=== PATIENT | male | born 1960 | race Caucasian/White ===

== ENCOUNTER 2020-08-16 08:46 | Emergency (ER) | payer OTHER ==
--- OUTSIDE RECORDS SUMMARY | 2020-08-16 08:50 | XMS REPORT | Clinical Summary ---
:1960 Author Organization [facility] Address [address] [place] [address] Care Team Providers Name Role Phone Lidia Cunha Primary Care Provider Unavailable Allergies No Known Active Allergies Medications Medication Sig Dispensed Refills Start End Date Status Date simvastatin Take 10 mg by 0 Acti ve (ZOCOR) 10 MG mouth daily. 0 tablet FLUoxetine Take 20 mg by 0 Activ e (PROzac) 20 MG mouth daily. capsule acetaminophen Take 500 mg by 0 A ctive (TYLENOL) 500 MG mouth every 6 tablet (six) hours as needed for mild pain. testosterone INJECT 1 ML 6 mL 0 11/10/19 Activ e cypionate (200 MG TOTAL) 1 21 (DEPOTESTOTERONE INTO THE CYPIONATE) 200 SHOULDER, mg/mL injection THIGH, OR BUTTOCKS EVERY 14 DAYS X90 DAYS levoFLOXacin Start day prior 5 tablet 0 12/30/19 E xpired (Levaquin) 750 MG to procedure, 0 20 tablet one tablet daily tadalafiL (CIALIS) Take 1 tablet 12 tablet 3 0 Discontinued 20 mg tablet (20 mg total) 0 20 (Er ror) by mouth every 7 days for 30 days. tadalafiL (CIALIS) Take 1 tablet 30 tablet 3 0 Discontinued 5 MG tablet (5 mg total) by 0 20 (E rror) mouth daily as needed for erectile dysfunction for up to 30 days. tiZANidine every 8 (eight) 0 02/21/20 Dis continued (ZANAFLEX) 4 MG hours. 20 (Err or) tablet ciprofloxacin Take 1 tablet 10 tablet 0 02/27/20 Ex pired (Cipro) 500 MG (500 mg total) 0 20 tablet by mouth 2 (two) times a day for 5 days. Start 1 day prior to tran catheter removal docusate sodium Take 1 capsule 60 capsule 0 03/20/20 Discontinued (Colace) 100 MG (100 mg total) 0 20 (Med List capsule by mouth 2 Cleanup) (two) times a day for 30 days. traMADoL (ULTRAM) Take 1 tablet 15 tablet 0 02/29/20 50 mg (50 mg total) 0 20 tabletIndications: by mouth every acute pain 6 (six) hours as needed for moderate pain for up to 7 days .acute pain. oxybutynin XL Take 1 tablet 30 tablet 11 02/27/20 Di scontinued (Ditropan XL) 10 (10 mg total) 0 20 (Dose MG 24 hr tablet by mouth daily. adjustment) oxybutynin XL Take 1 tablet 30 tablet 0 03/20/20 Di scontinued (Ditropan XL) 10 (10 mg total) 0 20 (Med List MG 24 hr tablet by mouth daily Cleanup) as needed (bladder spasms) for up to 30 days. sulfamethoxazole-t Take 1 tablet 14 tablet 0 0 rimethoprim by mouth 2 0 20 (Bactrim DS) (two) times a 800-160 mg per day for 7 days. tablet sulfamethoxazole-t Take 1 tablet 14 tablet 0 0 Discontinued rimethoprim by mouth 2 0 20 (Med Li st (BACTRIM DS) (two) times a [place]) 800-160 mg per day for 7 days. tablet HYDROcodone-acetam Take 1 tablet 0 0 Discontinued inophen (NORCO) by mouth every 20 (Med List 10-325 mg per 8 (eight) hours Cleanup) tabletIndications: as needed for acute pain moderate pain .acute pain. sulfamethoxazole-t Take 1 tablet 14 tablet 0 0 rimethoprim by mouth 2 0 20 (Bactrim DS) (two) times a 800-160 mg per day for 7 days. tablet apixaban (ELIQUIS) Take 1 tablet 60 tablet 2 0 5 mg tablet (5 mg total) by 0 20 mouth 2 (two) times a day for 90 days. apixaban (ELIQUIS) Take 2 tablets 120 tablet 2 06/20 5 mg tablet (10 mg total) 0 20 by mouth 2 (two) times a day for 90 days. testosterone Inject 1 mL 6 mL 0 08/11/19 Disco ntinued cypionate (200 mg total) 0 21 (Depo-Testosterone into the ) 200 mg/mL shoulder, injection thigh, or buttocks every 14 (fourteen) days for 90 days. syringe with 22 g every 14 6 each 2 08/13/19 Exp ired needle (BD (fourteen) days 0 21 Luer-Mervat Syringe) for 90 days. 3 mL 22 gauge x 1" syringe safety needles (BD 18 g every 14 6 each 2 0 SafetyGlide (fourteen) days 0 21 Needle) 18 gauge x for 90 days. 1 1/2" needle Hospital, Clinic, or Other Ordered Dose Route Frequency Start Date End Date Status Facility Administered Medication gentamicin (GARAMYCIN) 80 mg IM once 12/30/20192019 Ended injection 80 mgIndications: Elevated PSA Active Problems Problem Noted Date Intra-abdominal fluid collection 03/20/2020 Fluid collection at surgical site 03/20/2020 YOSSI drain bleeding 02/22/2020 Prostate cancer 01/13/2020 Cancer Staging: Pathologic stage from : pT2, pN0, cM0 - Signed by Aakash Escalera MD on 04/03/2020 Encounters Date Type Specialty Care Team Description 08/12/2020 Refill Urology Yonathan Malik MD 08/10/2020 Refill Urology Yonathan Malik MD 06/03/2020 Telephone Urology Roslyn Garcia MA 05/15/2020 Orders Only Urology Fadumo Medina MA 05/13/2020 Telephone Neurology Lyla Loja MD 05/12/2020 Hospital Encounter Radiology King, Elevated prolactin level MD Yonathan 05/12/2020 Travel 05/06/2020 Orders Only Urology Adam, Elevated prolac tin level COURTNEY Thorne (Primary Dx) 05/05/2020 Hospital Encounter Radiology Aakash Escalera Renal mas s MD Annmarie 05/05/2020 Hospital Encounter Radiology King, Intra-abd ominal fluid collection; MD Yonathan Renal mass 05/05/2020 Travel 04/29/2020 Office Visit Urology King, Hypogonadism courtney le (Primary Dx); MD Yonathan Intra-abdominal fluid collection; Renal mass 04/29/2020 Travel 04/23/2020 Telephone Urology Erin Lundberg Renal mass (Pr imary Dx) 04/22/2020 Hospital Encounter Radiology Aakash Escalera Lymphkaren Anguiano MD 04/22/2020 Travel 04/20/2020 Office Visit Urology Aaaksh Escalera Prostate cancer (HCC) (Primary Dx); MD Annmarie Lymphocele; Pain of lower e xtremity, unspecified laterality 04/20/2020 Travel 03/30/2020 Travel 03/29/2020 Refill Urology Zachary Blankenship NP 03/27/2020 Travel 03/24/2020 Travel 03/20/2020 Hospital Encounter Nephrology Koki Torre, Intra-ab dominal fluid collection (Primary Dx); - Pure hypercholesterolemia 03/22/2020 Kyle Bronson MD Brittain, Adam, MD 03/20/2020 Orders Only Internal Medicine Annamaria, Pure hyper cholesterolemia MD Gerardo (Primary Dx) 03/20/2020 Refill Urology Zachary Blankenship, ANDREIA 03/17/2020 Office Visit Urology Pattie, Lymphocele (Wilma arabella Dx); Zachary Malignant neopl asm of prostate (HCC) ANDREIA Lara 03/17/2020 Travel 03/16/2020 Travel 03/13/2020 Telephone Urology Erin Lundberg 03/13/2020 Transcribe Orders Urology Aakash Escalera MD 03/06/2020 Hospital Encounter Radiology Aakash Escalera Lymphocel e after benjamin Anguiano MD procedure 03/06/2020 Hospital Encounter Radiology Aakash Escalera Lymphocel e after benjamin Anguiano MD procedure 03/06/2020 Telephone UrologAakash Wise MD 03/06/2020 Transcribe Orders UrologAakash Wise Lymphocele after benjamin Anguiano MD procedure (Prim germaine Dx) 03/05/2020 Office Visit Urology Pattie, Malignant neopl asm of Zachary prostate (HCC) (Primary Jane, MECHANICAL TECHNICIAN Dx) 03/05/2020 Hospital Encounter Radiology Aakash Escalera Malignant neoplasm of MD Annmarie prostate (HCC) 03/05/2020 Telephone Radiology Meme Aguilera, TOMASA 03/05/2020 Travel 03/04/2020 Telephone Urology Erin Lundberg 03/04/2020 Transcribe Orders Urology Aakash Escalera Lymphocele after surgical procedure (Primary Dx); MD Annmarie Preop testing 03/03/2020 Lab Lab Aakash Escalera Status post pro statectomy MD Annmarie 03/03/2020 Hospital Encounter Radiology Aakash Escalera Status po st prostatectomy MD Annmarie 03/03/2020 Office Visit Urology Aakash Escalera Status post pro statectomy MD Annmarie (Primary Dx) 03/03/2020 Travel 03/03/2020 Orders Only Urology Jose, Malignant neopl asm of Roslyn, COURTNEY prostate (HCC) (Primary Dx) 02/27/2020 Office Visit Urology Pattie, Erectile dysfun ction after radical prostatectomy (Primary Dx); Zachary Malignant neopl asm of prostate (HCC) ANDREIA Lara 02/27/2020 Hospital Encounter Radiology Aakash Escalera Prostate cancer (HCC) MD Annmarie 02/27/2020 Travel 02/22/2020 Hospital Encounter General Surgery Aakash Escalera MD 02/24/2020 02/21/2020 Anesthesia Event UrologNhan Aguero MD Everitt, Amanda W., CONTACT CENTER TEAM LEAD 02/21/2020 Surgery Urology Aakash Escalera Robotic Assiste cally Anguiano MD Laparoscopic Pr ostatectomy Bilateral Pelvi c Lymph node Dissection Lapides Neuroplasty 02/21/2020 Hospital Encounter General Surgery Aakash Escalera Prosta te cancer (SOM) Jagjit Anguiano MD 02/22/2020 02/21/2020 Telephone Urology Aakash Escalera MD 02/18/2020 Pre-Admit Testing Pre-Admission Aakash Escalera Preop exa mination (Primary Dx); Appointment Testing MD Annmarie Malignant neopl asm of prostate (HCC) 02/18/2020 Office Visit Urology Pattie, Malignant neopl asm of prostate (HCC) (Primary Dx); Zachary Preop testing; ANDREIA Lara Prostate cancer (HCC) 02/18/2020 Telephone Urology Aakash Escalera MD 02/18/2020 Travel 02/06/2020 Travel 02/05/2020 Transcribe Orders Urology Aakash Escalera Prostate c caroler (HCC) MD Annmarie (Primary Dx) 02/05/2020 Travel 02/04/2020 Office Visit Urology Aakash Escalera Prostate cancer (HCC) (Primary Dx); MD Annmarie Elevated PSA 02/04/2020 Travel 01/13/2020 Office Visit Urology King, Prostate cancer (HCC) MD Yonathan (Primary Dx) 01/13/2020 Travel 12/30/2019 Ancillary Urology King, Elevated PSA Procedure MD Yonathan 12/30/2019 Office Visit Urology King, Elevated PSA (P rimary Dx) MD Yonathan 12/30/2019 Travel 12/25/2019 Orders Only Urology Fadumo Medina MA 11/01/2019 Travel 10/25/2019 Telephone Urology King, Elevated PSA (P rimary Dx) MD Yonathan 10/24/2019 Hospital Encounter Radiology King, Elevated PSA MD Yonathan 10/24/2019 Travel 10/18/2019 Office Visit Urology King, Elevated PSA (P rimary Dx) MD Yonathan 10/17/2019 Travel 10/17/2019 Transcribe Orders Urology King, Elevated P SA (Primary Dx) MD Yonathan after 08/16/2019 Surgical History Surgery Date Site/Laterality Comments BACK SURGERY 07/31/2012 - Balloon Kypoplas ty 07/30/2013 HERNIA REPAIR 07/31/1978 - 07/30/1979 PROSTATECTOMY, 02/21/2020 N/A Procedure: Robot ic Assisted LAPAROSCOPIC, Laparoscopic Pro statectomy ROBOT-ASSISTED Bilateral Pelvic Lymph node Dissection Lapid es Neuroplasty; Kunz rgeon: Aakash Escalera MD; Location: [facility] IN OR; Service: Urology ; Laterality: N/A; Medical devices from this surgery are in t he Implants section. Medical History Medical History Date Comments Anxiety 2016 Taking Prozac 1 per day Anesthesia NHAP/NO FHAP-denies CP/SOB natural teeth Exercises 3 to 4 times per week bike rid e when I can Hypercholesteremia Cancer (HCC) Family History Relation Name Status Comments Father Alive Mother Social History Tobacco Use Types Packs/Day Years Used Date Former Smoker Cigarettes 1 15 07/31/1989 - 2 010 Smokeless Tobacco: Never Used Comments: quit 10 years ago Alcohol Use Drinks/Week oz/Week Comments Not Currently 0 Glasses of wine 0.0 Recovered Alcoholic SOB denisse ye 0 Cans of beer 08/04/2003 0 Shots of liquor 0 Standard drinks or equivalent Sex Assigned at Date Recorded Male 10/17/2019 10:21 AM CDT Last Filed Vital Signs Vital Sign Reading Time Taken Comments Blood Pressure 130/71 03/22/2020 8:37 AM CDT Pulse 97 03/22/2020 8:37 AM CDT Temperature 36.5 C (97.7 F) 03/22/2020 8:37 AM CDT Respiratory Rate 19 03/22/2020 8:37 AM CDT Oxygen Saturation 95% 03/22/2020 8:37 AM CDT Inhaled Oxygen Concentration - - Weight 107 kg (235 lb) 05/12/2020 5:52 PM CDT Height 170.2 cm (5' 7") 05/12/2020 5:52 PM CDT Body Mass Index 36.81 05/12/2020 5:52 PM CDT Plan of Treatment Date Type Specialty Care Team Description 08/27/2020 Clinical Support Urology 08/27/2020 Office Visit Urology Yonathan Malik MD [address] [place], [place] [address] 0 [phone] Health Maintenance Due Date Last Done Comments COVID-19 VACCINE (1 of 2) 1977 COLONOSCOPY SCREENING 11/28/2011 SHINGLES VACCINES (#1) 11/28/2011 INFLUENZA VACCINE 02/29/2020 Implants Implanted Type Area Medical Records Analyst Device Shelf Model / Identifier Expiration Serial / Date Lot Amniofix Amniotic Membrane Allograft - [id number] - [id number] Human Tissue N/A: N/A [employer] 10/29/2024 APS [id number] / Implanted: Qty: 1 on 02/21/2020 by Aakash Escalera MD at [facility] Implants [id number] / [id number] Clip Ligtng Hem-O-Mervat Endoscpc Aplr [facility] - [id number] Medica l N/A: N/A [employer] 06/23/2020 [id number] / Implanted: Qty: 3 on 02/21/2020 by Aakash Escalera MD at [facility] Clips for / Internal Use Procedures Procedure Name Priority Date/Time Associated Diagnosis Comme nts MRI PITUITARY W WO Routine 05/12/2020 6:40 Elevated prolactin Results for this CONTRAST PM CDT level procedure are i n the results section. MRI PELVIS W WO Routine 05/05/2020 6:15 Intra-abdominal fluid Results for this CONTRAST PM CDT collection procedure are in Renal mass the results section. MRI ABDOMEN W WO Routine 05/05/2020 5:50 Renal mass Results for this CONTRAST PM CDT procedure are i n the results section. LUTEINIZING HORMONE Routine 04/29/2020 2:14 Hypogonadism male Results for this PM CDT procedure are i n the results section. FOLLICLE STIMULATING Routine 04/29/2020 2:14 Hypogonadism mal e Results for this HORMONE PM CDT procedure are i n the results section. PROLACTIN LEVEL Routine 04/29/2020 2:14 Hypogonadism male Res ults for this PM CDT procedure are i n the results section. ESTRADIOL LEVEL Routine 04/29/2020 2:14 Hypogonadism male Res ults for this PM CDT procedure are i n the results section. TESTOSTERONE LEVEL, Routine 04/29/2020 2:14 Hypogonadism male Results for this FREE AND TOTAL, MALE PM CDT procedu re are in the results section. CT ABDOMEN PELVIS W Routine 04/22/2020 10:33 Lymphocele Resu lts for this CONTRAST AM CDT procedure are i n the results section. PSA, ULTRASENSITIVE Routine 04/20/2020 10:43 Prostate cancer ( HCC) Results for this AM CDT procedure are i n the results section. TESTOSTERONE LEVEL, Routine 04/20/2020 10:43 Prostate cancer ( HCC) Results for this FREE AND TOTAL, MALE AM CDT procedu re are in the results section. CBC WITH PLATELET AND Routine 04/20/2020 10:43 Prostate cancer (HCC) Results for this DIFFERENTIAL AM CDT procedure are i n the results section. CT GUIDED ABSCESS Routine 03/21/2020 7:07 Result s for this DRAIN PM CDT procedure are i n the results section. US Routine 03/21/2020 5:25 Results for this PERITONEAL/RETROPERITO PM CDT proce dure are in YULY DRAIN the results section. ESTIMATED GFR Routine 03/21/2020 5:00 Results fo r this AM CDT procedure are i n the results section. CBC WITH PLATELET AND Routine 03/21/2020 5:00 Re sults for this DIFFERENTIAL AM CDT procedure are i n the results section. BASIC METABOLIC PANEL Routine 03/21/2020 5:00 Re sults for this AM CDT procedure are i n the results section. PARTIAL THROMBOPLASTIN Routine 03/21/2020 5:00 R esults for this TIME (PTT) AM CDT procedure are i n the results section. PROTHROMBIN TIME WITH Routine 03/21/2020 5:00 Re sults for this INR AM CDT procedure are i n the results section. URINALYSIS SCREEN AND Timed 03/20/2020 9:50 Re sults for this MICROSCOPY, WITH PM CDT procedure a re in REFLEX TO CULTURE the result s section. URINE CULTURE Timed 03/20/2020 9:50 Results fo r this PM CDT procedure are i n the results section. US DUPLEX VENOUS LOWER STAT 03/20/2020 9:37 R esults for this EXTREMITY BILATERAL PM CDT procedur e are in the results section. LACTIC ACID LEVEL, Timed 03/20/2020 8:01 Resul ts for this SEPSIS - NOW AND PM CDT procedure a re in REPEAT 2X EVERY 3 the result s HOURS section. LACTIC ACID LEVEL, Timed 03/20/2020 5:20 Resul ts for this SEPSIS - NOW AND PM CDT procedure a re in REPEAT 2X EVERY 3 the result s HOURS section. COVID-19 QUALITATIVE STAT 03/20/2020 5:20 Res ults for this PCR PM CDT procedure are i n the results section. CT ABDOMEN PELVIS W STAT 03/20/2020 4:36 Resu lts for this CONTRAST PM CDT procedure are i n the results section. LACTIC ACID LEVEL, STAT 03/20/2020 2:55 Resul ts for this SEPSIS - NOW AND PM CDT procedure a re in REPEAT 2X EVERY 3 the result s HOURS section. ESTIMATED GFR STAT 03/20/2020 2:55 Results fo r this PM CDT procedure are i n the results section. COMPREHENSIVE STAT 03/20/2020 2:55 Results fo r this METABOLIC PANEL PM CDT procedure ar e in the results section. PARTIAL THROMBOPLASTIN STAT 03/20/2020 2:55 R esults for this TIME (PTT) PM CDT procedure are i n the results section. PROTHROMBIN TIME WITH STAT 03/20/2020 2:55 Re sults for this INR PM CDT procedure are i n the results section. HC COMPLETE BLD COUNT STAT 03/20/2020 2:55 Re sults for this W/AUTO DIFF PM CDT procedure are i n the results section. US SOFT TISSUE DRAIN Routine 03/06/2020 11:20 Lymphocele after Results for this AM CDT surgical procedure procedure are in the results section. CREATININE LEVEL, MISC Routine 03/06/2020 11:15 R esults for this FLUID AM CDT procedure are i n the results section. GRAM STAIN Routine 03/06/2020 11:15 Results for this AM CDT procedure are i n the results section. ANAEROBIC CULTURE Routine 03/06/2020 11:15 Result s for this AM CDT procedure are i n the results section. AEROBIC CULTURE Routine 03/06/2020 11:15 Results for this AM CDT procedure are i n the results section. CREATININE LEVEL, MISC Routine 03/06/2020 10:58 R esults for this FLUID AM CDT procedure are i n the results section. GRAM STAIN Routine 03/06/2020 10:58 Results for this AM CDT procedure are i n the results section. ANAEROBIC CULTURE Routine 03/06/2020 10:58 Result s for this AM CDT procedure are i n the results section. AEROBIC CULTURE Routine 03/06/2020 10:58 Results for this AM CDT procedure are i n the results section. US SOFT TISSUE DRAIN Routine 03/06/2020 10:45 Lymphocele after Results for this AM CDT surgical procedure procedure are in the results section. FL CYSTOGRAM MINIMUM 3 Routine 03/05/2020 12:29 Malignant neop lasm of Results for this VW PM CDT prostate (HCC) procedure are in the results section. CT ABDOMEN PELVIS W Routine 03/03/2020 2:31 Status post Resu lts for this CONTRAST PM CDT prostatectomy procedure are in the results section. CREATININE LEVEL, MISC STAT 03/03/2020 1:25 Status post R esults for this FLUID PM CDT prostatectomy procedure are in the results section. FL CYSTOGRAM MINIMUM 3 Routine 02/27/2020 12:15 Prostate cance r (HCC) Results for this VW PM CDT procedure are i n the results section. HC COMPLETE BLD COUNT Routine 02/24/2020 5:00 Re sults for this W/AUTO DIFF AM CDT procedure are i n the results section. ESTIMATED GFR Routine 02/24/2020 4:00 Results fo r this AM CDT procedure are i n the results section. PHOSPHORUS LEVEL Routine 02/24/2020 4:00 Results for this AM CDT procedure are i n the results section. MAGNESIUM LEVEL Routine 02/24/2020 4:00 Results for this AM CDT procedure are i n the results section. BASIC METABOLIC PANEL Routine 02/24/2020 4:00 Re sults for this AM CDT procedure are i n the results section. CT ABDOMEN PELVIS W WO Routine 02/23/2020 11:39 R esults for this CONTRAST AM CDT procedure are i n the results section. HC COMPLETE BLD COUNT Routine 02/23/2020 4:30 Re sults for this W/AUTO DIFF AM CDT procedure are i n the results section. ESTIMATED GFR Routine 02/23/2020 4:00 Results fo r this AM CDT procedure are i n the results section. PHOSPHORUS LEVEL Routine 02/23/2020 4:00 Results for this AM CDT procedure are i n the results section. MAGNESIUM LEVEL Routine 02/23/2020 4:00 Results for this AM CDT procedure are i n the results section. BASIC METABOLIC PANEL Routine 02/23/2020 4:00 Re sults for this AM CDT procedure are i n the results section. ESTIMATED GFR Routine 02/22/2020 8:30 Results fo r this PM CDT procedure are i n the results section. PHOSPHORUS LEVEL Routine 02/22/2020 8:30 Results for this PM CDT procedure are i n the results section. MAGNESIUM LEVEL Routine 02/22/2020 8:30 Results for this PM CDT procedure are i n the results section. BASIC METABOLIC PANEL Routine 02/22/2020 8:30 Re sults for this PM CDT procedure are i n the results section. HC COMPLETE BLD COUNT Routine 02/22/2020 8:30 Re sults for this W/AUTO DIFF PM CDT procedure are i n the results section. ESTIMATED GFR Routine 02/22/2020 4:00 Results fo r this AM CDT procedure are i n the results section. BASIC METABOLIC PANEL Routine 02/22/2020 4:00 Re sults for this AM CDT procedure are i n the results section. HEMATOCRIT Routine 02/22/2020 4:00 Results for this AM CDT procedure are i n the results section. HEMOGLOBIN Routine 02/22/2020 4:00 Results for this AM CDT procedure are i n the results section. ESTIMATED GFR STAT 02/21/2020 5:40 Results fo r this PM CDT procedure are i n the results section. BASIC METABOLIC PANEL STAT 02/21/2020 5:40 Re sults for this PM CDT procedure are i n the results section. HEMOGLOBIN STAT 02/21/2020 5:40 Results for this PM CDT procedure are i n the results section. HEMATOCRIT STAT 02/21/2020 5:40 Results for this PM CDT procedure are i n the results section. SURGICAL PATHOLOGY Routine 02/21/2020 3:33 Resul ts for this REQUEST PM CDT procedure are i n the results section. SURGICAL PATHOLOGY Routine 02/21/2020 3:33 Resul ts for this REQUEST PM CDT procedure are i n the results section. NJ AN ELECTIVE Routine 02/21/2020 1:19 Results f or this ENDOTRACHEAL AIRWAY PM CDT procedur e are in the results section. PROSTATECTOMY, 02/21/2020 12:36 Prostate cancer (HCC) LAPAROSCOPIC, PM CDT ROBOT-ASSISTED Case Notes [facility] Special Needs [facility] URINE CULTURE Routine 02/18/2020 11:58 Results fo r this AM CDT procedure are i n the results section. ECG PRE/POST OP Routine 02/18/2020 10:54 Preop examination Res ults for this AM CDT procedure are i n the results section. ESTIMATED GFR Routine 02/18/2020 10:41 Results fo r this AM CDT procedure are i n the results section. HIV AG/AB COMBINATION Routine 02/18/2020 10:41 Malignant neopl asm Results for this AM CDT of prostate (HCC) procedure are in the results section. TESTOSTERONE LEVEL, Routine 02/18/2020 10:41 Malignant neoplas m Results for this FREE AND TOTAL, MALE AM CDT of prostate (HCC) pr ocedure are in the results section. HC COMPLETE BLD COUNT Routine 02/18/2020 10:41 Preop examinati on Results for this W/AUTO DIFF AM CDT procedure are i n the results section. COMPREHENSIVE METABOLIC Routine 02/18/2020 10:41 Preop examina tion Results for this PANEL AM CDT procedure are i n the results section. PROTHROMBIN TIME WITH Routine 02/18/2020 10:41 Preop examinati on Results for this INR AM CDT procedure are i n the results section. PARTIAL THROMBOPLASTIN Routine 02/18/2020 10:41 Preop examinat ion Results for this TIME (PTT) AM CDT procedure are i n the results section. TYPE AND SCREEN Routine 02/18/2020 10:41 Preop examination Res ults for this AM CDT procedure are i n the results section. URINALYSIS SCREEN AND Routine 02/18/2020 10:41 Preop examinati on Results for this MICROSCOPY, WITH REFLEX AM CDT proc edure are in TO CULTURE the results section. COVID-19 QUALITATIVE Routine 02/18/2020 10:41 Malignant neopla sm Results for this PCR AM CDT of prostate (HCC) procedure are in the results section. US PROSTATE BIOPSY Routine 12/30/2019 1:48 Elevated PSA Resul ts for this PM CDT procedure are i n the results section. MRI PROSTATE WWO Routine 10/24/2019 10:15 Elevated PSA Results for this CONTRAST AM CDT procedure are i n the results section. after 08/16/2019 Results MRI Pituitary W Wo Contrast (05/12/2020 6:40 PM CDT) Specimen Narrative Performed At This result has an attachment that is no t available. EXAMINATION: MRI PITUITARY W WO CONTRAST HM RADIANT CLINICAL HISTORY: R79.89 Other specifi ed abnormal findings of blood chemistry, elevated prolactin COMPARISON: None. Findings: No intracranial hemorrhage, acute ischem ia, extra-axial fluid collections or parenchymal mass lesions. No hydrocephalus. No suspicious focal bone marrow lesions. No abnormal postcontrast enhancement the brain. No abnormal signal, masses or enhancemen t in the sella, cavernous sinuses, infundibulum or suprasellar cistern. Optic chiasm is within normal limits. ICA flow voids are maintained. IMPRESSION: No acute intracranial abnormalities or mass lesions. Unremarkable evaluation of the pituitary gland. [id number] Procedure Note Hm Interface, Radiology Results Incoming - 05/12/2020 7:25 PM CDT EXAMINATION: MRI PITUITARY W WO CONTRAST CLINICAL HISTORY: R79.89 Other specifie d abnormal findings of blood chemistry, elevated prolactin COMPARISON: None. Findings: No intracranial hemorrhage, acute ischem ia, extra-axial fluid collections or parenchymal mass lesions. No hydrocephalus. No suspicious focal bone marrow lesions. No abnormal postcontrast enhancement the brain. No abnormal signal, masses or enhancemen t in the sella, cavernous sinuses, infundibulum or suprasellar cistern. Optic chiasm is within normal limits. ICA flow voids are maintained. IMPRESSION: No acute intracranial abnormalities or m ass lesions. Unremarkable evaluation of the pituitary gland. [facility] Performing Organization Address City/State/ZIP Code Phon e Number [facility] [address] [place] [address] MRI Pelvis W Wo Contrast (05/05/2020 6:15 PM CDT) Specimen Narrative Performed At EXAMINATION: MRI PELVIS W WO CONTRAST [facility] CLINICAL HISTORY: R18.8 Other ascites, N28.89 Other specified disorders of kidney and ureter, pelvic p ain TECHNIQUE: Multiplanar multisequence MR images of the pelvis were obtained pre- and post intravenous admin istration of Gadolinium. COMPARISON: MRI from 10/24/[address] from 04/22/2020 IMPRESSION: 1. Status post prostatectomy. Bladder is normal in appearance. 2.1.3 x 2.6 x 2.1 cm lymphocele along the left anterio r pelvic sidewall that measured 1.5 x 3.5 x 2.[address] on prio r CT. 3.There are nonspecific mildly enlarged bilateral pelv ic sidewall nodes, which appear similar to prior CT. A right common iliac node measures 1.1 x 2.5 cm (series 5 image 19) and left common iliac nod e measures 0.8 x 2.1 cm (image 18). Bilateral mildly enlarged external iliac nodes present measuring 1.3 x 2.5 cm on the right side (series 5 image 25). Enlarged nodes present in the right and left groin on the right side measuring 1 .8 x 2.6 cm. 4.The small amount of edema in the left abductor muscl e suggesting mild strain. 5.No suspicious marrow signal abnormalit y noted. Summary: 1.Status post prostatectomy. 1.3 x 2.6 x 2.1 cm left p elvic sidewall lymphocele appears slightly decreased fr om prior CT of 04/22/2020. 2.Nonspecific mildly enlarged pelvic golden ewall nodes. [id number] Procedure Note Interface, Radiology Results Incoming - 05/05/2020 6:59 PM CDT EXAMINATION: MRI PELVIS W WO CONTRAST CLINICAL HISTORY: R18.8 Other ascites, N28.89 Other specified disorders of kidney and ureter, pelvic pain TECHNIQUE: Multiplanar multisequence MR images of the pelvis were obtained pre- and post intravenous administration of Gadolinium. COMPARISON: MRI from 10/24/[address] f rom 04/22/2020 IMPRESSION: 1. Status post prostatectomy. Bladder is normal in appearance. 2.1.3 x 2.6 x 2.1 cm lymphocele along th e left anterior pelvic sidewall that measured 1.5 x 3.5 x 2.[address] 3.There are nonspecific mildly enlarged bilateral pelvic sidewall nodes, which appear similar to prior CT. A right common iliac node measures 1.1 x 2.5 cm (series 5 image 19) and left common iliac node measures 0.8 x 2.1 cm (image 18). Bilateral mildly enlarged external iliac nodes present me asuring 1.3 x 2.5 cm on the right side (series 5 image 25). Enlarged nodes present in the right and left groin on the right side measuring 1.8 x 2.6 cm. 4.The small amount of edema in the left abductor muscle suggesting mild strain. 5.No suspicious marrow signal abnormalit y noted. Summary: 1.Status post prostatectomy. 1.3 x 2.6 x 2.1 cm left pelvic sidewall lymphocele appears slightly decreased from prior CT of 04/22/2020. 2.Nonspecific mildly enlarged pelvic golden ewall nodes. [id number] Performing Organization Address City/State/ZIP Code Phon e Number [facility] [address] [place] [address] MRI Abdomen W Wo Contrast (05/05/2020 5:50 PM CDT) Specimen Narrative Performed At This result has an attachment that is no t available. EXAMINATION: MRI ABDOMEN W WO CONTRAST [facility] CLINICAL HISTORY: N28.89 Other specifi ed disorders of kidney and ureter, renal mass TECHNIQUE: Multiplanar multisequence MR images of the abdomen were obtained pre- and post dynamic intravenous administration of Gadolinium. COMPARISON: CT from 04/22/2020 IMPRESSION: Liver: There is mild fatty infiltration of liver. No f ocal mass. Gallbladder/Biliary: The gallbladder is normal. There is no evidence of intra or extrahepatic biliary ductal dilatation. Spleen: The spleen is not enlarged. Pancreas: Pancreas is unremarkable. Adrenal Glands: The adrenal glands are unremarkable. Kidneys: There is a 1.2 cm cyst in the i nferior pole of the left kidney corresponding to the lesion seen on recent MRI. Couple of thin septations (series 9 image 15 and minimal wall enhancement noted (s eries 11 image 44) consistent with a Bosniak 2F. There is a 1 cm simple cyst in mid left kidney. A couple of tiny cysts in the right kidney. Vascular: The abdominal aorta is nonaneurysmal. Nodes: No enlarged retroperitoneal or mesenteric lymph adenopathy. Bowel: There are scattered diverticula i n the colon without evidence of diverticulitis. There is a 3 cm diverticulum from the distal third portion of the duodenum. Ascites/fluid collections: No ascites or fluid collect ions. Bone marrow: Kyphoplasty signal alterati on present in the upper lumbar spine. No suspicious marrow signal abnormality identified. Other: None. Summary: 1.2 cm cyst in the inferior left kidney demonstrates couple of thin septations and minimal wall thickening suggesting a complex cyst (Bosniak 2F). [id number] Procedure Note Hm Interface, Radiology Results Incoming - 05/05/2020 7:39 PM CDT EXAMINATION: MRI ABDOMEN W WO CONTRAST CLINICAL HISTORY: N28.89 Other specifie d disorders of kidney and ureter, renal mass TECHNIQUE: Multiplanar multisequence MR images of the abdomen were obtained pre- and post dynamic intravenous administration of Gadolinium. COMPARISON: CT from 04/22/2020 IMPRESSION: Liver: There is mild fatty infiltration of liver. No focal mass. Gallbladder/Biliary: The gallbladder is normal. There is no evidence of intra or extrahepatic biliary ductal dilatation. Spleen: The spleen is not enlarged. Pancreas: Pancreas is unremarkable. Adrenal Glands: The adrenal glands are u nremarkable. Kidneys: There is a 1.2 cm cyst in the i nferior pole of the left kidney corresponding to the lesion seen on recent MRI. Couple of thin septations (series 9 image 15 and minimal wall enhancement noted (series 11 image 44) consistent with a Bosniak 2F. There is a 1 cm simple cyst in mid left kidney. A couple of tiny cysts in the right kidney. Vascular: The abdominal aorta is nonaneu rysmal. Nodes: No enlarged retroperitoneal or me senteric lymphadenopathy. Bowel: There are scattered diverticula i n the colon without evidence of diverticulitis. There is a 3 cm diverticulum from the distal third portion of the duodenum. Ascites/fluid collections: No ascites or fluid collections. Bone marrow: Kyphoplasty signal alterati on present in the upper lumbar spine. No suspicious marrow signal abnormality identified. Other: None. Summary: 1.2 cm cyst in the inferior left kidney demonstrates couple of thin septations and minimal wall thickening suggesting a complex cyst (Bosniak 2F). [id number] Performing Organization Address [facility] Phon e Number [facility] [address] [place] [address] Prolactin level (04/29/2020 2:14 PM CDT) Pathologist Sig nature Prolactin 26.3 (H) 4.0 - 15.2 ng/mL [facility] Specimen Blood Narrative Performed At Performed at: [address] [place] [address] [id number] Wire Stretcher: Garo Atkins MD, Phone: [phone] Performing Organization Address [facility] Phon e Number [facility] Estradiol level (04/29/2020 2:14 PM CDT) Pathologist Sig nature Estradiol 9.0Comment: Vance ECLIA 7.6 - 42.6 pg/mL [facility] methodology Specimen Blood Narrative Performed At Performed at: [address] [place] [address] [id number] Wire Stretcher: Garo Atkins MD, Phone: [phone] Performing Organization Address [facility] Phon e Number [facility] Testosterone level, free and total, male (04/29/2020 2:14 PM CDT)Only the most recent of3 resultswithin the time period is included. Testosterone 93 (L) 264 - 916 [facility] Comment: ng/dL Adult male reference interval is based on a population of healthy nonobese males (BMI <30) between 19 and 39 yea rs old. gualberto Figueroa.al. JCEM 2017,102;0462-6455. PMID: 086648 03. Testosterone, free 6.1 (L) 7.2 - 24.0 [facility] 02 pg/mL Specimen Blood Narrative Performed At Performed at: [address] [place] [address] [facility] [address] [place] [id number] Wire Stretcher: Garo Atkins MD, Phone: [phone] Performed at: - [address] [id number] Wire Stretcher: Patricio Bull MD, Phone: [phone] Performing Organization Address [facility] Phon e Number [facility] 02 Luteinizing hormone (04/29/2020 2:14 PM CDT) Pathologist Sig nature Luteinizing hormone 3.2 1.7 - 8.6 mIU/mL [facility] Specimen Blood Narrative Performed At Performed at: [facility] [address] [place] [id number] Wire Stretcher: Garo Atkins MD, Phone: [phone] Performing Organization Address [facility] Phon e Number [facility] Follicle stimulating hormone (04/29/2020 2:14 PM CDT) Pathologist Sig nature Follicle stimulating 5.2 1.5 - 12.4 mIU/mL [facility] hormone Specimen Blood Narrative Performed At Performed at: [facility] [address] [place] [id number] Wire Stretcher: Garo Atkins MD, Phone: [phone] Performing Organization Address [facility] e Number [facility] CT Abdomen Pelvis W Contrast (04/22/2020 10:33 AM CDT)Only the most recent of3 resultswithin the time period is included. Specimen Narrative Performed At EXAMINATION: CT ABDOMEN PELVIS W CONTR AST [facility] CLINICAL HISTORY: 59 years old Male. I89.8 Other speci fied noninfective disorders of lymphatic vessels and lymph nodes, lymphocele. TECHNIQUE: Multiple axial images of the abdomen and pe lvis were obtained following intravenous administration of iodinated cont rast. Oral contrast was not administered. Sagittal and coronal co mputerized reformatted images were also obtained. C T imaging was performed with iterative reconstruction techniques and/or automated exposure control to reduce radiation dos e. COMPARISON: CT abdomen pelvis 0, 03/03/2020, 02/23/2020 IMPRESSION: LOWER CHEST: Visualized lower thorax: Lung bases: No significant pleural effus ion. Lower mediastinum: Cardiac size is sesar l. No pericardial effusion. ABDOMEN: Upper abdominal organs: Liver: Measures 16 cm in craniocaudal dimension. Mild hypertrophy of the left hemiliver. Smooth contour. No discr ete enhancing lesions. Gallbladder: Normal, not distended. Spleen: Normal. Pancreas: Normal. Adrenal Glands: Normal. Kidneys: There is a 1.7 x 1.6 cm intermediate density lesion in the left kidney inferior pole (series 301, image 91), not signi ficantly changed from 02/23/2020 examination. 9 mm hypoattenuating lesio n in the left kidney interpolar region, likely a cyst. No hydronephrosis. No obstructing renal or ureteral calculi. Bowel and mesentery: Large and small bowel are normal in caliber without focal wall thickening or mesenteric fat stranding. Few scattered diverticula of the descending colon. Normal appendix. The bowel is otherwise normal.No free intraperitoneal gas or fluid. Vasculature: Abdominal aorta is of normal caliber. Clover iac artery, superior and inferior mesenteric arteries, superior me senteric and portal veins appear patent. Moderate calcified an d non-calcified atherosclerotic disease of the abdominal aorta and branch vessels. Lymph nodes: No abdominal or retroperito yuly lymphadenopathy. PELVIS: Urinary bladder: Decompressed, mildly thick-walled. Pr ostatectomy postoperative changes. There is decreased size of a 3.5 x 1.9 cm low-density fluid collection along the left pelvic sidewall (series 301, image 151) , previously 7.2 x 4.0 cm on the 03/20/2020 examination. Lymph nodes: Borderline mildly enlarged right greater than left inguinal lymph nodes are again noted with normal fatty vazquez, no t significantly changed. Borderline mildly enlarged right external maribel ac lymph node (series 301, image 148) measuring 1.9 x 1.1 cm, not significantly changed. Left external iliac ly mph node (series 301, image 155) measuring 1.2 x 1.0 cm, not significan tly changed. Bilateral common iliac lymph nodes are also mildly enl arged, not significantly changed. For reference, ri ght common iliac lymph node (series 301, image 119) measures 1.2 x 1.1 cm and left common iliac lymph node (series 301, kay ge 118) measures 1.7 x 1.1 cm. MUSCULOSKELETAL: L1 and L2 kyphoplasty posttreatment changes. Mild supe rior endplate Schmorl's node involving the L3 vertebral body, simila r to prior. Small ventral abdominal umbilical hernia containing fat. Age appropriate degenerative changes of the spine. SUMMARY: 1. Prostatectomy postoperative changes with decreased size of 3.5 x 1.9 cm low-density fluid collection along the left pelvic sidewall, likely postoperative seroma or lymphocele. 2. Borderline mildly enlarged bilateral inguinal, exte rnal and common iliac lymph nodes, not significantly changed, possibly reactive, however metastatic disease is not excluded. 3. 1.7 cm intermediate density lesion arising from the left kidney, inferior pole, indeterminate. Renal ultrasound can be performed for further evaluation to exclude a solid lesion, if indic ated clinically. [id number] Procedure Note Hm Interface, Radiology Results - 04/22/2020 10:53 AM CDT EXAMINATION: CT ABDOMEN PELVIS W CONTRAST CLINICAL HISTORY: 59 years old Male. I89 .8 Other specified noninfective disorders of lymphatic vessels and lymph nodes, lymphocele. TECHNIQUE: Multiple axial images of the abdomen and pelvis were obtained following intravenous administration of iodinated contrast. Oral contrast was not administered. Sagittal and coronal computerized reformatted images were also obtained. CT imaging was performed with iterative reconstruct ion techniques and/or automated exposure control to reduce radiation dose. COMPARISON: CT abdomen pelvis 03/20/2020 , 03/03/2020, 02/23/2020 IMPRESSION: LOWER CHEST: Visualized lower thorax: Lung bases: No significant pleural effus ion. Lower mediastinum: Cardiac size is sesar l. No pericardial effusion. ABDOMEN: Upper abdominal organs: Liver: Measures 16 cm in craniocaudal di mension. Mild hypertrophy of the left hemiliver. Smooth contour. No discrete enhancing lesions. Gallbladder: Normal, not distended. Spleen: Normal. Pancreas: Normal. Adrenal Glands: Normal. Kidneys: There is a 1.7 x 1.6 cm interme diate density lesion in the left kidney inferior pole (series 301, image 91), not significantly changed from 02/23/2020 examination. 9 mm hypoattenuating lesion in the left kidney interpolar region, likely a cyst. No hydronephrosis. No obstructing renal or ureteral calculi. Bowel and mesentery: Large and small bow el are normal in caliber without focal wall thickening or mesenteric fat stranding. Few scattered diverticula of the descending colon. Normal appendix. The bowel is otherwise normal.No free intraperitoneal gas or fluid. Vasculature: Abdominal aorta is of sesar l caliber. Celiac artery, superior and inferior mesenteric arteries, superior mesenteric and portal veins appear patent. Moderate calcified and non-calcified atherosclerotic disease of the abdominal aorta and branch vessels. Lymph nodes: No abdominal or retroperito yuly lymphadenopathy. PELVIS: Urinary bladder: Decompressed, mildly th ick-walled. Prostatectomy postoperative changes. There is decreased size of a 3.5 x 1.9 c m low-density fluid collection along the left pelvic sidewall (series 301, image 151), previously 7.2 x 4.0 cm on the 03/20/2020 examination. Lymph nodes: Borderline mildly enlarged right greater than left inguinal lymph nodes are again noted with normal fatty vazquez, not significantly changed. Borderline mildly enlarged right external iliac lymph node (series 301, image 148) measuring 1.9 x 1.1 cm, not significantly changed. Left ext ernal iliac lymph node (series 301, image 155) measuring 1.2 x 1.0 cm, not significantly changed. Bilateral common iliac lymph nodes are also mildly enlarged, not significantly changed. For reference, ri ght common iliac lymph node (series 301, image 119) measures 1.2 x 1.1 cm and left common iliac lymph node (series 301, image 118) measures 1.7 x 1.1 cm. MUSCULOSKELETAL: L1 and L2 kyphoplasty posttreatment vallejo ges. Mild superior endplate Schmorl's node involving the L3 vertebral body, similar to prior. Small ventral abdominal umbilical hernia containing fat. Age appropriate degenerative changes of the spine. SUMMARY: 1. Prostatectomy postoperative changes w ith decreased size of 3.5 x 1.9 cm low- density fluid collection along the left pelvic sidewall, likely postoperative seroma or lymphocele. 2. Borderline mildly enlarged bilateral inguinal, external and common iliac lymph nodes, not significantly changed, possibly reactive, however metastatic disease is not excluded. 3. 1.7 cm intermediate density lesion ar ising from the left kidney, inferior pole, indeterminate. Renal ultrasound can be performed for further evaluation to exclude a solid lesion, if indicated clinically. [id number] Performing Organization Address City/State/ZIP Code Phon e Number [facility] [address] [place] [address] PSA, ultrasensitive (04/20/2020 10:43 AM CDT) PSA, ultrasensitive <0.014 0.000 - 4.000 [facility] Comment: ng/mL Vance ECLIA methodology. According to the [employer], Seru m PSA should decrease and remain at undetectable levels after radic al prostatectomy. The AUA defines biochemical recurrence as an initial PSA value 0.200 ng/mL or greater followed by a subsequ ent confirmatory PSA value 0.200 ng/mL or greater. Values obtained with different assay methods or kits c annot be used interchangeably. Results cannot be interpreted as abso lute evidence of the presence or absence of malignant disease. Specimen Blood Narrative Performed At Performed at: 01 - [facility] [address] [place], [place] [address] 143 Wire Stretcher: Garo Atkins MD, Phone: [phone] Performing Organization Address City/State/ZIP Code Phon e Number [facility] CBC with platelet and differential (04/20/2020 10:43 AM CDT)Only the most recent of7 resultswithin the time period is included. Pathologist Sig nature WBC 8.6 3.4 - 10.8 x10E3/uL [facility] RBC 4.31 4.14 - 5.80 [facility] x10E6/uL HGB 12.7 (L) 13.0 - 17.7 g/dL [facility] HCT 38.3 37.5 - 51.0 % [facility] MCV 89 79 - 97 fL [facility] MCH 29.5 26.6 - 33.0 pg [facility] MCHC 33.2 31.5 - 35.7 g/dL [facility] RDW 13.1 11.6 - 15.4 % [facility] Platelet count 319 150 - 450 x10E3/uL [facility] Neutrophils 66 Not Estab. % [facility] Lymphocytes 19 Not Estab. % [facility] Monocytes 10 Not Estab. % [facility] Eosinophils 4 Not Estab. % [facility] Basophils 1 Not Estab. % [facility] Neutrophils, absolute 5.7 1.4 - 7.0 x10E3/uL [facility] Lymphocytes, absolute 1.7 0.7 - 3.1 x10E3/uL [facility] Monocytes, absolute 0.9 0.1 - 0.9 x10E3/uL [facility] Eosinophils, absolute 0.3 0.0 - 0.4 x10E3/uL [facility] Basophils, absolute 0.0 0.0 - 0.2 x10E3/uL [facility] Immature granulocytes 0 Not Estab. % [facility] Immature grans (abs) 0.0 0.0 - 0.1 x10E3/uL [facility] Specimen Blood Narrative Performed At Performed at: - [facility] [address] [place], [place] [id number] Wire Stretcher: Garo Atkins MD, Phone: [phone] Performing Organization Address City/State/ZIP Code Phon e Number [facility] CT Guided Abscess Drain (03/21/2020 7:07 PM CDT) Specimen Narrative Performed At EXAMINATION: CT GUIDED ABSCESS DRAIN [facility] CLINICAL HISTORY: Lymphocele s p prost atectomy COMPARISON: CT abdomen pelvis dated TECHNIQUE: The risks, benefits, and alternatives were discussed w ith the patient and written informed consent was obtained. Initially, the patient was brought to the ultrasound procedure room. The tendon w as performed at 1% lidocaine was administered. An 18-gauge Chiba needle was advanced in the collection under imag e guidance. Although a small amount of fluid was aspirated and wir e went freely, a pigtail catheter could not be within the collection. T he decision was made to transfer the patient over to the CT scanner and performed the procedure under CT guidance. Axial images through the abscess were obtained. CT imaging was perf ormed with iterative reconstruction techniques and/or automated e xposure control to reduce radiation dose. A site for need le injury was selected and the skin was prepped and draped in t he usual sterile fashion. After local administration of 1% buffered lid ocaine, a tiny dermatotomy was made. Using CT fluoroscopic guidance, a 18-gauge Chiba needle was inserted into the fluid collection. Subsequently, an 8.5 Samoan was positioned within the fluid collection using Seldinger technique over a 0.035 inch stiff Amplatz wire. The catheter was secured to the skin and placed to YOSSI bulb drainage. The patient tolerated the proc edure without difficulty and was discharged to the radiology observation area for monitoring prior to discharge. Antibiotics:Antibiotic prophylaxis was not given as th e patient was already on scheduled intravenous antibio tics prior to the procedure Conscious sedation: Under physician supervision, a com bination of intravenous Versed and fentanyl was given. Pulse oxime try, heart rate, and blood pressure were continuously monitored by an i adampencarleen trained observer present. . The physician spent a total of 21 minutes during the ultrasound procedure an d [address] procedure of [id number] sedation time with the patient. EBL: <10 cc Complications: None. Assistants: None. IMPRESSION: Ultimately successful placement of an 8.5 Samoan multi purpose drainage catheter into a left pelvic lymphocele under image lakeisha dance as described above. [id number] Procedure Note Hm [facility], Radiology Results Incoming - 03/25/2020 1:17 PM CDT EXAMINATION: CT GUIDED ABSCESS DRAIN CLINICAL HISTORY: Lymphocele s p prosta tectomy COMPARISON: CT abdomen pelvis dated 03/01 TECHNIQUE: The risks, benefits, and alternatives we re discussed with the patient and written informed consent was obtained. Initially, the patient was brought to the ultrasound procedure room. The tendon was performed at 1% lidocaine was administered. An 18-gauge Chiba needle was advanced in the collect ion under image guidance. Although a small amount of fluid was aspirated and wire went freely, a pigtail catheter could not be within the collection. The decision was made to transfer the patient over to the CT scanner and performed the procedure unde r CT guidance. Axial images through the abscess were obtained. CT imaging was performed with iterative reconstruction techniques and/or automated exposure control to reduce radiation dose. A site for needle injur y was selected and the skin was prepped a nd draped in the usual sterile fashion. After local administration of 1% buffered lidocaine, a tiny dermatotomy was made. Using CT fluoroscopic guidance, a 18-gauge Chiba needle was inserted into the fluid collection. Subsequently, an 8.5 Samoan was positioned within the fluid collection using Seldinger technique over a 0.035 inch stiff Amplatz wire. The catheter was secured to the skin and placed to YOSSI bulb drainage. The patient tolerated the procedure without difficulty and was discharged to the radiology observation area for monitoring prior to discharge. Antibiotics:Antibiotic prophylaxis was n ot given as the patient was already on scheduled intravenous antibiotics prior to the procedure Conscious sedation: Under physician megan oneill, a combination of intravenous Versed and fentanyl was given. Pulse oximetry, heart rate, and blood pressure were continuously monitored by an independent trained observer present. . The physician spent a total of 21 minutes during the ultrasoun d procedure and [address] procedure of wpef-jp-gntb sedation time with the patient. EBL: <10 cc Complications: None. Assistants: None. IMPRESSION: Ultimately successful placement of an 8. 5 Samoan multipurpose drainage catheter into a left pelvic lymphocele under image guidance as described above. [id number] Performing Organization Address City/State/ZIP Code Phon e Number [facility] [address] [place] [address] US Peritoneal/Retroperitoneal Drain (03/21/2020 5:25 PM CDT) Specimen Narrative Performed At EXAMINATION: US PERITONEAL RETROPERITO YULY DRAIN RAAD RADILORA CLINICAL HISTORY: Lymphocele s p prost atectomy COMPARISON: CT abdomen pelvis dated TECHNIQUE: The risks, benefits, and alternatives were discussed w ith the patient and written informed consent was obtained. Initially, the patient was brought to the ultrasound procedure room. The tendon w as performed at 1% lidocaine was administered. An 18-gauge Chiba needle was advanced in the collection under imag e guidance. Although a small amount of fluid was aspirated and wir e went freely, a pigtail catheter could not be within the collection. T he decision was made to transfer the patient over to the CT scanner and performed the procedure under CT guidance. Axial images through the abscess were obtained. CT imaging was perf ormed with iterative reconstruction techniques and/or automated e xposure control to reduce radiation dose. A site for need le injury was selected and the skin was prepped and draped in t usual sterile fashion. After local administration of 1% buffered lid ocaine, a tiny dermatotomy was made. Using CT fluoroscopic guidance, a 18-gauge Chiba needle was inserted into the fluid collection. Subsequently, an 8.5 Samoan was positioned within the fluid collection using Seldinger technique over a 0.035 inch stiff Amplatz wire. The catheter was secured to the skin and placed to YOSSI bulb drainage. The patient tolerated the proc edure without difficulty and was discharged to the radiology observation area for monitoring prior to discharge. Antibiotics:Antibiotic prophylaxis was not given as e patient was already on scheduled intravenous antibio tics prior to the procedure Conscious sedation: Under physician supervision, a com bination of intravenous Versed and fentanyl was given. Pulse oxime try, heart rate, and blood pressure were continuously monitored by an i ndependent trained observer present. . The physician spent a total of 21 minutes during the ultrasound procedure an minutes during the CT procedure of joax-oq-gpcs sedation time with the patient. EBL: <10 cc Complications: None. Assistants: None. IMPRESSION: Ultimately successful placement of an 8.5 Samoan multi purpose drainage catheter into a left pelvic lymphocele under image lakeisha lawson as described above. [id number] Procedure Note Hm Interface, Radiology Results Incoming - 03/25/2020 1:18 PM CDT EXAMINATION: US PERITONEAL RETROPERITONEAL DRAIN CLINICAL HISTORY: Lymphocele s p prosta tectomy COMPARISON: CT abdomen pelvis dated 03/01 TECHNIQUE: The risks, benefits, and alternatives we re discussed with the patient and written informed consent was obtained. Initially, the patient was brought to the ultrasound procedure room. The tendon was performed at 1% lidocaine was administered. An 18-gauge Chiba needle was advanced in the collect ion under image guidance. Although a small amount of fluid was aspirated and wire went freely, a pigtail catheter could not be within the collection. The decision was made to transfer the patient over to the CT scanner and performed the procedure unde r CT guidance. Axial images through the abscess were obtained. CT imaging was performed with iterative reconstruction techniques and/or automated exposure control to reduce radiation dose. A site for needle injur y was selected and the skin was prepped a nd draped in the usual sterile fashion. After local administration of 1% buffered lidocaine, a tiny dermatotomy was made. Using CT fluoroscopic guidance, a 18-gauge Chiba needle was inserted into the fluid collection. Subsequently, an 8.5 Samoan was positioned within the fluid collection using Seldinger technique over a 0.035 inch stiff Amplatz wire. The catheter was secured to the skin and placed to YOSSI bulb drainage. The patient tolerated the procedure without difficulty and was discharged to the radiology observation area for monitoring prior to discharge. Antibiotics:Antibiotic prophylaxis was n ot given as the patient was already on scheduled intravenous antibiotics prior to the procedure Conscious sedation: Under physician megan oneill, a combination of intravenous Versed and fentanyl was given. Pulse oximetry, heart rate, and blood pressure were continuously monitored by an independent trained observer present. . The physician spent a total of 21 minutes during the ultrasoun d procedure and [address] procedure of yvve-mw-zurp sedation time with the patient. EBL: <10 cc Complications: None. Assistants: None. IMPRESSION: Ultimately successful placement of an 8. 5 Samoan multipurpose drainage catheter into a left pelvic lymphocele under image guidance as described above. [id number] Performing Organization Address City/[facility] Phon e Number [facility] [address] [place] [address] Estimated GFR (03/21/2020 5:00 AM CDT)Only the most recent of8 resultswithin the time period is included. Pathologist [facility] [place] Estimated GFR >=90 mL/min/1.73 [place] [facility] Comment: [address] Catergory Units Interpretation G1 >=90 Normal or high G2 60-89 Mildly decreased G3a 45-59 Mildly to moderately decreas ed G3b 30-44 Moderately to severely decre ased G4 15-29 Severely decreased G5 <15 Kidney failure The eGFR was calculated using the Chronic Kidney Disea se Epidemiology Collaboration (CKD-EPI) equation. Interpretation is based on recommendations of the National Kidney Foundation-Kidney Disease Outcomes Stefan lity Initiative (NKF-KDOQI) published in 2014. Specimen Performing Organization Address City/[facility] Code Phon e Number [facility] DEPARTMENT OF PATHOLOGY AND [address] [place] [address] [phone] [address] Partial thromboplastin time, activated (03/21/2020 5:00 AM CDT)Only the most recent of3 resultswithin the time period is included. [facility] PTT 36.4 (H) 23.0 - 36.0 LEO REMY Comment: [facility] PTT therapeutic range for unfractionated heparin is 61.0-112.0 seconds which corresponds to Anti-Xa 0.3-0.7 U/ml. Specimen Blood Performing Organization Address City/[facility] Phon e Number [facility] DEPARTMENT OF PATHOLOGY AND [address] [place] [address] [phone] [address] Prothrombin time with INR (03/21/2020 5:00 AM CDT)Only the most recent of3 resultswithin the time period is included. Pathologist [facility] [place] Prothrombin time 13.2 11.5 - 14.5 [facility] INR 1.0 [place] Comment: [facility] The International Normalized Ratio (INR) is a therapeu [facility] HOSPITAL monitoring tool for patients who are stable on oral anticoagulant therapy. An INR of 2.0-3.0 is suggested for deep vein thrombosis/pulmonary embolism. Specimen Blood Performing Organization Address City/[facility] Phon e Number [facility] DEPARTMENT OF PATHOLOGY AND [address] [place] [address] [phone] [address] Basic metabolic panel (03/21/2020 5:00 AM CDT)Only the most recent of6 results within the time period is included. [facility] Sodium 138 135 - 148 mEq/L [facility] L Potassium 4.3 3.5 - 5.0 mEq/L [facility] L Chloride 100 98 - 112 mEq/L [facility] CO2 23 (L) 24 - 31 mEq/L [facility] Anion gap 15@ANIO 7 - 15 mEq/L [facility] BUN 14 6 - 20 mg/dL [facility] Creatinine 0.80 0.70 - 1.20 mg/dL [facility] Glucose 113 (H) 65 - 99 mg/dL [facility] Calcium 9.4 8.3 - 10.2 mg/dL [facility] Specimen Blood Performing Organization Address [facility] Phon e Number [facility] DEPARTMENT OF PATHOLOGY AND [address] [place] [address] [phone] [address] Urinalysis screen and microscopy, with reflex to culture (03/20/2020 9:50 PM CDT)Only the most recent of2 resultswithin the time period is included. [facility] Specimen site Clean catch [facility] Color, UA Straw [facility] Appearance, UA Clear [facility] Specific gravity, 1.047 (H) 1.001 - 1.035 [facility] pH, UA 6.0 5.0 - 8.5 [facility] Protein, UA Negative Negative [facility] Glucose, UA Negative Negative [facility] Ketones, UA Negative Negative [facility] Bilirubin, UA Negative Negative [facility] Blood, UA Negative Negative [facility] Nitrite, UA Negative Negative [facility] Urobilinogen, UA <2.0 <2.0 [facility] Leukocyte esterase, Negative Negative [facility] WBC, UA None seen 0 - 1 /HPF [facility] RBC, UA 1 0 - 5 /HPF [facility] Bacteria, UA None seen None seen [facility] Yeast, UA Few (A) [facility] Yeast with None seen [facility] pseudohyphae, HOSPITAL Specimen Urine Performing Organization Address [facility] Phon e Number [facility] DEPARTMENT OF PATHOLOGY AND [address] [place] [address] Urine culture (03/20/2020 9:50 PM CDT)Only the most recent of2 resultswithin the time period is included. Pathologist Sig nature Urine culture SEE COMMENTComment: [facility] Bacteriuria screen HOSPITAL negative. Specimen Performing Organization Address [facility] Phon e Number [facility] DEPARTMENT OF PATHOLOGY AND [address] [place] [address] duplex venous lower extremity (03/20/2020 9:37 PM CDT) Specimen Narrative Performed At [facility] Lower Extr emity Venous Report [address] [place] [address] Pat.Name: SAMIR CASTILLO.ID: [id number] .Date: 03/20/2020 Refer.MD: GERARDO BRAMBILA MD Exam Time: 7:50:00 PM Study Type:L E Venous Height: 67in Weight: 225lb BSA: 2.13 m2 Ag e: 1960,59Y Sex: MALE Sonogr phr: Jaimes Vi, RVT Pat. Stat.:Inpatient Room: [id number] Tape Vol: HV, CPT - 4: 80229 Echo Event ID:[id number] Order ID: [id number] Reason for Study:Bilateral leg swelling. History of bilateral lymphoceles, prostate cancer s/p RALP , intra-abdominal fluid collection. Procedures: Colorflow, Grayscale/2D, Pul sed wave Doppler SUMMARY: DUPLEX SCAN OBSERVATIONS Deep Veins Superficial Veins Right Left Right Left EIV GSV (prox) Normal Normal CFV Normal Normal (above knee) Femoral Normal Normal GSV (dist) Normal Normal Profunda Normal Normal (below knee) Popliteal Normal Partial/chronic PT (prox) Normal Normal SSV Normal Nor mal PT (dist) Normal Normal Peroneal Normal Normal Gastrocs Normal Normal RIGHT: There is normal compressibility w ith no evidence of echogenic material noted within the lumen of the v isualized veins.Colorflow and Doppler signals are normal. There is a n on-vascularized structure seen in the groin area measuring approximatel y 2.94 cm x 0.84 cm. Colorflow and Doppler signals are absent. LEFT: The popliteal vein is compressib le with bright string echogenic material within the lumen. Colorflow a nd Doppler signals are present. There is a non-vascularized structure se en in the groin area measuring approximately 2.50 cm x 0.90 cm. Colorfl ow and Doppler signals are absent. PRELIMINARY FINDINGS: 1. Partial/chronic deep venous thrombosi s of left popliteal vein. 2. Multiple non-vascularized structures at the groin area, bilaterally. Result given to TOMASA Amezcua at 21:45 PM on 03/20/2020. PHYSICIAN INTERPRETATION: 1. Partial/chronic deep venous thrombosi s of left popliteal vein. 2. Multiple prominent lymph nodes in the groin, bilaterally. FINDINGS: Signed 03/21/2020 11:26 AM Quentin Irizarry MD, FACS, RPVI Procedure Note Interface, Radiology Results In - 2019 11:27 AM CDT [facility] Lower Extremity Veno us Report [address] [address] , [place] [address] Pat.Name: SAMIR CASTILLO Pat.I D: [id number] St.Date: 03/20/2020 Refer .MD: GERARDO BRAMBILA MD Exam Time: 7:50:00 PM Study Type:LE Venous Height: 67in Weigh t: 225lb BSA: 2.13 m2 Age: 5 1960,59Y Sex: MALE Sonog rphr: Theodore Alberto, ERAT Pat. Stat.:Inpatient Room: [address] Tape Vol: HV, CPT - 4: 73685 Echo Event ID:[id number] Order ID: [id number] Reason for Study:Bilateral leg swelling. History of bilateral lymphoceles, prostate cancer s/p RALP , intra-abdominal fluid collection. Procedures: Colorflow, Grayscale/2D, Pul sed wave Doppler SUMMARY: DUPLEX SCAN OBSERVATIONS Deep Veins Superficial Veins Right Left Right Left EIV GSV (prox) Normal Normal CFV Normal Normal (above knee) Femoral Normal Normal GSV (dist) Normal Normal Profunda Normal Normal (below knee) Popliteal Normal Partial/chronic PT (prox) Normal Normal SSV Normal Norm al PT (dist) Normal Normal Peroneal Normal Normal Gastrocs Normal Normal RIGHT: There is normal compressibility w ith no evidence of echogenic material noted within the lumen of the v isualized veins.Colorflow and Doppler signals are normal. There is a n on-vascularized structure seen in the groin area measuring approximatel y 2.94 cm x 0.84 cm. Colorflow and Doppler signals are absent. LEFT: The popliteal vein is compressibl e with bright string echogenic material within the lumen. Colorflow an d Doppler signals are present. There is a non-vascularized structure se en in the groin area measuring approximately 2.50 cm x 0.90 cm. Colorfl ow and Doppler signals are absent. PRELIMINARY FINDINGS: 1. Partial/chronic deep venous thrombosi s of left popliteal vein. 2. Multiple non-vascularized structures at the groin area, bilaterally. Result given to TOMASA Amezcua at 21:45 PM on 03/20/2020. PHYSICIAN INTERPRETATION: 1. Partial/chronic deep venous thrombosi s of left popliteal vein. 2. Multiple prominent lymph nodes in the groin, bilaterally. FINDINGS: Signed 03/21/2020 11:26 AM Quentin Irizarry MD, FACS, RPVI Performing Organization Address [facility] Phon e Number [facility] [address] [place] [address] Lactic acid level, SEPSIS - Now and repeat 2x every 3 hours (03/20/2020 8:01 PM CDT)Only the most recent of3 resultswithin the time period is included. Pathologist Sig nature Lactic acid 1.3 0.5 - 2.2 mmol/L [facility] AL Specimen Blood Performing Organization Address [facility] Phon e Number [facility] DEPARTMENT OF PATHOLOGY AND [address] [place] [address] [phone] [address] COVID-19 qualitative PCR (03/20/2020 5:20 PM CDT)Only the most recent of2 resultswithin the time period is included. Interpretation Negative results do not prec lude 2019-nCoV infection and should not be used as the sole basis for treatment or other patient management decisions. Negative results must be combined with clinical observations, patient history, and epidemiological [place] information. [facility] COVID-19 qualitative Not-Detected Not-Detecte [place] PCR result d [facility] COVID-19 qualitative See link below for [place] PCR PDF Lab [facility] ReportComment: Case HOSPITAL Number: [id number] Specimen Nasopharyngeal swab Performing Organization Address [facility] Phon e Number [facility] DEPARTMENT OF PATHOLOGY AND [address] [place] [address] [phone] [address] [facility] Comprehensive metabolic panel (03/20/2020 2:55 PM CDT)Only the most recent of2 resultswithin the time period is included. Sodium 140 135 - 148 [facility] mEq/L [facility] Potassium 4.6 3.5 - 5.0 [facility] mEq/L [facility] Chloride 102 98 - 112 [facility] mEq/L [facility] CO2 24 24 - 31 mEq/L [facility] Anion gap 14@ANIO 7 - 15 mEq/L [facility] BUN 14 6 - 20 mg/dL [facility] Creatinine 0.88 0.70 - 1.20 [facility] mg/dL [facility] Glucose 100 (H) 65 - 99 mg/dL [facility] Calcium 9.6 8.3 - 10.2 [facility] mg/dL [facility] Protein 7.2 6.3 - 8.3 [facility] Comment: g/dL [facility] 4.6-7.0 g/dL 1 week 4.4-7.6 g/dL 7 months-1year 5.1-7.3 g/dL 1-2 years 5.6-7.5 g/dL >3 years 6.0-8.0 g/dL 18-150 6.3-8.3 g/dL Albumin 3.2 (L) 3.5 - 5.0 [facility] g/dL [facility] A/G ratio 0.8 0.7 - 3.8 [facility] Alkaline phosphatase 176 (H) 40 - 129 U/L [facility] AST 29 10 - 50 U/L [facility] ALT 54 (H) 5 - 50 U/L [facility] Total bilirubin 0.8 0.0 - 1.2 [facility] mg/dL HOSPITAL Specimen Blood Performing Organization Address City/State/ZIP Code Phon e Number [facility] DEPARTMENT OF PATHOLOGY AND [address] [place] [phone] [facility]IC[facility] [address] [address] US Soft Tissue Drain (03/06/2020 11:20 AM CDT)Only the most recent of2 results within the time period is included. Specimen Narrative Performed At Examination: US SOFT TISSUE DRAIN, US SOFT TISSUE DRAIN RADIANT Clinical history: "I89.8 Other specified noninfectiv e disorders of lymphatic vessels and lymph nodes, LEFT lymphocele" Comparison: CT abdomen/pelvis 03/03/2020 . Anesthesia: Lidocaine solution was inj ected into the involved tissues. Conscious sedation: After the risks and benefits of conscious sedation were discussed, midazolam and fentanyl were administer ed intravenously. Throughout the conscious sedation duration, the luzma ent was continuously monitored by a registered maik dickens. The physician intraservice knxn-ru-qzds time with the patient was 40 minutes. Antibiotic prophylaxis: Antibiotic prophylaxis was not given due to the clean/low-risk nature of the procedure. Technique: The patient was prepared using sterile te chnique after signed, informed consent was obtained. Maximal sterile barrier technique was implemented. The left and right lower quadrants of the abdomen was imaged sonographically; the left and rig ht lower quadrant fluid collections were identified. U nder real-time sonographic guidance, an 18G Chiba needle was inserted percutaneously into the left lower quadrant fluid collection from an anterior approach. Seldinger technique was used to introd uce a standard guidewire into the effusion. After the pe rcutaneous tissues were dilated, a 10 Samoan drainage catheter was in troduced and positioned with the catheter tip within the left lower quadrant fluid collection. Approximately 200cc of remberto ar yellow fluid was aspirated through the catheter. The e xternal portion of the catheter was sutured to the adjacent skin. The pro cess was repeated for the right lower quadrant fluid collection, with as piration of approximately 50cc of clear yellow fluid through the catheter. Estimated blood loss: Less than 1 cc. Complications: None. Specimens removed: As above. Attending Radiologist: Stephanie alvarez M.D. Resident: Lissy Bass M.D IMPRESSION: 10 Samoan drainage catheters were introd uced into the left and right lower quadrant fluid collections using real- time sonographic guidance and without incident as described above. Ap proximately 200 cc of clear yellow fluid was aspirated from the left fluid collection and 50 cc of clear yell ow fluid was aspirated from the right fluid collection. Samples wer e submitted for laboratory evaluation. [id number] Dictated and approved by radiology resid ent/fellow: Lissy Bass M.D. I, STEPHANIE QUINONEZ MD, personally reviewed the [facility] and resident's/fellow's findings and agree with the final report. Procedure Note [facility], Radiology Results Incoming - 03/06/2020 4:25 PM CDT Examination: US SOFT TISSUE DRAIN, US SOFT TISSUE DRAIN Clinical history: "I89.8 Other specifie d noninfective disorders of lymphatic vessels and lymph nodes, LEFT lymphocele" Comparison: CT abdomen/pelvis 03/03/2020. Anesthesia: Lidocaine solution was inje cted into the involved tissues. Conscious sedation: After the risks and benefits of conscious sedation were discussed, midazolam and fentanyl were administered intravenously. Throughout the conscious sedation duration, the patient was continuously monitored by a registered nurse. The physician intraservice ycac-dk-ynif time with the patient was 40 minutes. Antibiotic prophylaxis: Antibiotic proph ylaxis was not given due to the clean/low-risk nature of the procedure. Technique: The patient was prepared usi ng sterile technique after signed, informed consent was obtained. Maximal sterile barrier technique was implemented. The left and right lower quadrants of the abdomen was imaged sonographically; the left and right lower quadrant fluid collections were i dentified. Under real-time sonographic guidance, an 18G Chiba needle was inserted percutaneously into the left lower quadrant fluid collection from an anterior approach. Seldinger technique was used to introduc e a standard guidewire into the effusion. After the percutaneous tissues were dilated, a 10 Samoan drainage catheter was introduced and positioned with the catheter tip within the left lower quadrant fluid collection. Approximately 200cc of clear yellow fluid was aspirated through the c atheter. The external portion of the catheter was sutured to the adjacent skin. The process was repeated for the right lower quadrant fluid collection, with aspiration of approximately 50cc of clear yellow fluid through the catheter. Estimated blood loss: Less than 1 cc. Complications: None. Specimens removed: As above. Attending Radiologist: Stephanie mariscal M.D. Resident: Lissy Bass M.D IMPRESSION: 10 Samoan drainage catheter s were introduced into the left and right lower quadrant fluid collections using real-time sonographic guidance and without incident as described above. Approximately 200 cc of clear yellow fluid was aspirated from the left fluid collection and 50 cc of clear yellow fluid was aspirated from the right fluid collection. Samples were submitted for laboratory evaluation. [facility]-[id number] Dictated and approved by radiology resid ent/fellow: Lissy Bass M.D. I, STEPHANIE QUINONEZ MD, personally reviewed the images and resident's/fellow's findings and agree with the final report. Performing Organization Address City/[facility]/ZIP Code Phon e Number [facility] [address] [place] [phone] Aerobic culture (03/06/2020 11:15 AM CDT)Only the most recent of2 resultswithin the time period is included. Aerobic culture No growth after 3 days. [place] [facility] isolate Comment: HOSPITAL Specimen Information Specimen Source: Fluid Specimen Site: Right Pelvic Lymphocele Specimen Performing Organization Address [facility] Phon e Number [facility] DEPARTMENT OF PATHOLOGY AND [address] [place] [address] [phone] [address] Gram stain (03/06/2020 11:15 AM CDT)Only the most recent of2 resultswithin the time period is included. Gram stain isolate Rare WBC's [facility] No organisms seen HOSPITAL Comment: Specimen Information Specimen Source: Fluid Specimen Site: Right Pelvic Lymphocele Specimen Performing Organization Address [facility] Phon e Number [facility] DEPARTMENT OF PATHOLOGY AND [address] [place] [address] [phone] [address] Anaerobic culture (03/06/2020 11:15 AM CDT)Only the most recent of2 results within the time period is included. Anaerobic culture No anaerobic organisms isolated. [facility] isolate Comment: HOSPITAL Specimen Information Specimen Source: Fluid Specimen Site: Right Pelvic Lymphocele Specimen Performing Organization Address [facility] Phon e Number [facility] DEPARTMENT OF PATHOLOGY AND [address] [place] [address] [phone] [address] Creatinine level, misc fluid (03/06/2020 11:15 AM CDT)Only the most recent of3 resultswithin the time period is included. Fluid type RIGHT PELVIC LYMPHOCELE [facility] Creatinine, fluid 1.2 mg/dL [facility] Comment: HOSPITAL The reference interval(s) and other method performance specifications have not been established for this body fluid. The test results must be integrated into the clinical context for interpretation. This test has been modified from the manufacturers instructions. The performance characteristics were determined by [facility] in a manner consistent with CLIA requirements. This test has not been cleared or approved by the U.S. Food and Drug Administration. Specimen Fluid Performing Organization Address City/State/ZIP Code Phon e Number [facility] DEPARTMENT OF PATHOLOGY AND [address] [place], [place] [phone] GENOMIC MEDICINE [facility] [address] [place] [address] [place] Cystogram Minimun 3 Views (03/05/2020 12:29 PM CDT)Only the most recent of2 resultswithin the time period is included. Specimen Narrative Performed At EXAMINATION: [place] CYSTOGRAM MINIMUM 3 VW [facility] CLINICAL HISTORY: C61 Malignant neopla sm of prostate, PROSTATE CANCER COMPARISON: Prior cystogram 02/27/2020. TECHNIQUE: Cystogram was performed. Contrast was insti lled into the bladder in a retrograde manner via Tran catheter. Fluoroscopy time: 4.8 minutes Spot Nelson ms: 15 Dose: 398.1 mGy FINDINGS: Bladder is normally distensible and normal in contour. No contrast extravasation was seen. No vesicoureteral reflux. No s ignificant postvoid residual. IMPRESSION: No evidence of an anastomotic leak is seen on the pres ent exam. The previously seen leak appears to resolve. [facility]-[id number] Dictated and approved by resident care director/fellow: Dorothy Stuart M.D. I, Rayna Erickson MD, personally reviewed the images and resident's/fellow's findings and agree with the final report. Procedure Note Interface, Radiology Results Incoming - 03/05/2020 2:19 PM CDT EXAMINATION: [place] CYSTOGRAM MINIMUM 3 VW CLINICAL HISTORY: C61 Malignant neoplas m of prostate, PROSTATE CANCER COMPARISON: Prior cystogram 02/27/2020. TECHNIQUE: Cystogram was performed. Cont rast was instilled into the bladder in a retrograde manner via Tran catheter. Fluoroscopy time: 4.8 minutes Spot Film s: 15 Dose: 398.1 mGy FINDINGS: Bladder is normally distensible and norm al in contour. No contrast extravasation was seen. No vesicoureteral reflux. No significant postvoid residual. IMPRESSION: No evidence of an anastomotic leak is se en on the present exam. The previously seen leak appears to resolve. [facility]-[id number] Dictated and approved by radiology resid ent/fellow: Efren Stuart M.D. I, Rayna Erickson MD, personally review ed the images and resident's/fellow's findings and agree with the final report. Performing Organization Address City/State/ZIP Code Phon e Number [facility] [address] [place] [phone] Phosphorus level (02/24/2020 4:00 AM CDT)Only the most recent of3 resultswithin the time period is included. Pathologist Sig nature Phosphorus 2.4 2.4 - 4.5 mg/dL [facility] Specimen Blood Performing Organization Address City/[facility] Phon e Number [facility] DEPARTMENT OF PATHOLOGY AND [address] [place] [address] [phone] [address] Magnesium level (02/24/2020 4:00 AM CDT)Only the most recent of3 resultswithin the time period is included. Pathologist Sig nature Magnesium 2.1 1.6 - 2.6 mg/dL [facility] L Specimen Blood Performing Organization Address [facility] Phon e Number [facility] DEPARTMENT OF PATHOLOGY AND [address] [place] [address] [phone] [address] [address] Abdomen Pelvis W Wo Contrast (02/23/2020 11:39 AM CDT) Specimen Narrative Performed At EXAMINATION: CT ABDOMEN PELVIS W WO CO NTRAST HM [facility] CLINICAL HISTORY: Abd distension, hx constipation r o bowel obstruction and post-op hematoma TECHNIQUE: Helical CT of the abdomen and pelvis was obtained pre- and post administration of iodinated contrast. Sagittal and coronal computerized reformatted images were also obtained. CT scans are performed using radiation dose reduction techniques. Technical factors are evaluated and adjusted to ensur e appropriate moderation of exposure. Automated dose pest management supervisor nology is applied to adjust radiation exposure while achie ving a diagnostic quality image. COMPARISON: None. IMPRESSION: Lower Chest: Lung bases are clear. Abdomen: Liver: Normal in size and contour withou t discrete mass. Gallbladder/Biliary: Gallbladder is unremarkable. Th ere is no biliary dilatation. Spleen: Normal in size. Pancreas: Unremarkable. Adrenal Glands: Unremarkable. Kidneys: Punctate nonobstructive left re nal calculus. No hydronephrosis. Vascular: The abdominal aorta is normal in caliber. Nodes: No regional adenopathy. Bowel: The bowel is unobstructed. There is enteric con trast throughout the colon and rectum, without extravasation. There is pancolonic diverticulosis without acute diverticuli tis. Normal appendix. Ascites/fluid collections: None. Pelvis: Lymphovascular: No pelvic adenopathy. Reproductive organs: Expected post surgical changes ar e seen in the prostatectomy bed. Bilateral small pelvic sidewall h ematomas with small foci of lucency which may be related to surgical hemostatic material. Bladder: Urinary bladder is decompressed by a Tran catheter. Other: None. Musculoskeletal: There is extensive subcutaneous emphy sema likely related to recent surgery. SUMMARY: 1.No bowel obstruction. 2.Expected postsurgical changes in the pelvis without large volume hematoma. [facility]-WPHYNXG Procedure Note Hm Interface, Radiology Results Incoming - 02/23/2020 12:23 PM CDT EXAMINATION: CT ABDOMEN PELVIS W WO CONTRAST CLINICAL HISTORY: Abd distension, hx co nstipation r o bowel obstruction and post-op hematoma TECHNIQUE: Helical CT of the abdomen a nd pelvis was obtained pre- and post administration of iodinated contrast. Sagittal and coronal computerized reformatted images were also obtained. CT scans are performed using radiation dose reduction technique s. Technical factors are evaluated and adj usted to ensure appropriate moderation of exposure. Automated dose management technology is applied to adjust radiation exposure while achieving a diagnostic quality image. COMPARISON: None. IMPRESSION: Lower Chest: Lung bases are clear. Abdomen: Liver: Normal in size and contour withou t discrete mass. Gallbladder/Biliary: Gallbladder is unre markable. There is no biliary dilatation. Spleen: Normal in size. Pancreas: Unremarkable. Adrenal Glands: Unremarkable. Kidneys: Punctate nonobstructive left re nal calculus. No hydronephrosis. Vascular: The abdominal aorta is normal in caliber. Nodes: No regional adenopathy. Bowel: The bowel is unobstructed. There is enteric contrast throughout the colon and rectum, without extravasation. There is pancolonic diverticulosis without acute diverticulitis. Normal appendix. Ascites/fluid collections: None. Pelvis: Lymphovascular: No pelvic adenopathy. Reproductive organs: Expected post surgi nini changes are seen in the prostatectomy bed. Bilateral small pelvic sidewall hematomas with small foci of lucency which may be related to surgical hemostatic material. Bladder: Urinary bladder is decompressed by a Tran catheter. Other: None. Musculoskeletal: There is extensive subc utaneous emphysema likely related to recent surgery. SUMMARY: 1.No bowel obstruction. 2.Expected postsurgical changes in the p cary without large volume hematoma. [facility] Performing Organization Address [facility] Phon e Number [address] [address] Hemoglobin (02/22/2020 4:00 AM CDT)Only the most recent of2 resultswithin the time period is included. Pathologist Sig nature HGB 12.7 (L) 14.0 - 18.0 g/dL [facility] Specimen Blood Performing Organization Address [facility] Phon e Number [facility] DEPARTMENT OF PATHOLOGY AND [address] [place] [phone] GENOMIC [address]INE [address] [address] Hematocrit (02/22/2020 4:00 AM CDT)Only the most recent of2 resultswithin the time period is included. Pathologist Sig nature HCT 38.5 (L) 41.0 - 51.0 % [facility] Specimen Blood Performing Organization Address [facility] Phon e Number [facility] DEPARTMENT OF PATHOLOGY AND [address] [place] [phone] GENOMIC MEDICINE [address] [address] Surgical pathology request (02/21/2020 3:33 PM CDT)Only the most recent of2 resultswithin the time period is included. [facility] DEPARTMENT OF PATHOLOGY AND GENOMIC MEDICINE Surgical pathology See link below for [facility] DEPARTMENT O F report PDF Lab Report PATHOLOGY AND GENOMIC MEDICINE Result status This is Supplemental [facility] DEPARTMENT OF Report for PATHOLOGY AND [id number] GENOMIC MEDICINE Specimen Performing Organization Address [facility] Phon e Number [facility] DEPARTMENT OF PATHOLOGY AND [address] [place] [phone] GENOMIC MEDICINE Airway (02/21/2020 1:19 PM CDT) Narrative Performed At Nhan Cisse MD 0 4:10 PM Airway Performed by: Rachel Salvador by: Du Palacio M D Location: OR Urgency: Elective Difficult Airway: No Performed by: resident/WOOD CABINET FINISHER/AA Preoxygenated with 100% O2: Yes Mask Ventilation: Easy mask Final Airway Type: Endotracheal airway Final Endotracheal Airway: ETT Cuffed: Yes Technique Used: Video laryngoscopy Devices/Methods Used in Placement: Int ubating stylet Insertion Site: Oral Blade Type: Concetta Laryngoscope Blade/Videolaryngoscope Amol de Size: 3 ETT Size (mm): 8.0 Cuff at minimum occlusion pressure: Yes Measured from: Lips ETT to Lips (cm): 23 Placement Verified by: CO2 detection, di rect visualization and equal breath sounds Laryngoscopic view: Grade I - full vie w of glottis Number of Attempts at Approach: 2 ECG Pre/Post Op (02/18/2020 10:54 AM CDT) Pathologist Sig nature Ventricular rate 74 [facility] Atrial rate 74 [facility] NJ interval 146 [facility] QRSD interval 100 [facility] QT interval 384 [facility] QTC interval 426 [facility] P axis 1 27 [facility] QRS axis 1 2 [facility] T wave axis 35 [facility] EKG impression Normal sinus [facility] rhythm-Normal ECG-No previous ECGs available-Electronicall y Signed By Damián Rose MD ([id number]) on 02/18/2020 9:10:03 PM Specimen Narrative Performed At This result has an attachment that is no t available. Performing Organization Address [facility]/ZIP Code Phon e Number [facility] MUSE [address] [place] [phone] HIV Ag/Ab combination (02/18/2020 10:41 AM CDT) HIV Ag/Ab combination Non-reactive Non-reactive [facility] Specimen Blood Performing Organization Address City/[facility]/ZIP Code Phon e Number [facility] DEPARTMENT OF PATHOLOGY AND [address] [place] [phone] GENOMIC MEDICINE [address] [address] Type and screen (02/18/2020 10:41 AM CDT) Pathologist Sig nature ABO grouping O [facility] Rh type POS [facility] Antibody screen (gel) NEG [facility] Specimen Blood Performing Organization Address City/[facility]/ZIP Code Phon e Number [facility] DEPARTMENT OF PATHOLOGY AND [address] [place], [place] [phone] GENOMIC MEDICINE [facility] [address] [place] [address] Prostate Biopsy (12/30/2019 1:48 PM CDT) Specimen Narrative Performed At This result has an attachment that is no t available. Ultrasound/MRI guided Prostate Needle Biopsy [facility] Diagnosis Elevated PSA Previous Bx: suspicious for CAP Findings: Prostate echogenicity: Heterogenous Calcifications: Large multiple Measurements: Whole Gland AP Diamter: 3.5 cm. Trasverse: 4.3 cm. Length 4.4 cm. Total Volume 36 mL. Nodule none Ultrasound guided biopsies under local anesthesia: 12 Template Biopsies. 2 Additional Biopsies of MRI LOYD PI-RADS 4 Right mi dline anterior . : Comments: Fusion guided prostate needle BX was performed by Dr.S parekh and procedure was tolerated very well. Total 14 cores were taken und er local anesthesia 2% lidocaine 5 cc on each side. Performing Organization Address City/State/ZIP Code Phon e Number [facility] [address] [place] [address] MRI Prostate Wwo Contrast (10/24/2019 10:15 AM CDT) Specimen Narrative Performed At This result has an attachment that is no t available. EXAMINATION: MRI PROSTATE WWO CONTRAST [facility] CLINICAL HISTORY: 58 years Male R97. 20 Elevated prostate specific antigen (PSA), elev psa COMPARISON: None. TECHNIQUE: Using a pelvic phased array c oil, multiplanar, multisequence MRI of the pelvis was performed with a prostate-specific protocol with and without contrast. Diffusion weighted images and dynamic contrast enhanced images were performed. The examination was performed using a 3T magnet. IMAGE QUALITY: The image quality is satisfactory. IMPRESSION: 1. Size: The prostate gland measures 3.2 x 3.8 x 3.0 cm. Calculated prostatic volume (ellipsoid model) is 19.10 cc. 2. Central gland: In the anterior centra l gland towards the apex, there is a T2 low signal lesion measuring approximately 1.1 x 1.3 x 1.3 cm, with ill-defined borders. It is associated with hypervascularity as well as restricted diffusion. 3. Peripheral zone: No significant lesion identified. 4. Seminal vesicles: Normal. 5. Extracapsular extension: There is mil d bulging of the anterior capsule without clear extracapsular extension. 6: Bladder: Normal. 7. Lymph nodes: Nonspecific pelvic sidew all and inguinal nodes are seen, measuring less than 1 cm in short axis. 8. Musculoskeletal: No focal marrow replacing abnormal ity. 9. Other: No additional signaificant findings. PI-RADS score: 4 PI-RADS score: The presence of a significant prostate cancer is: PI-RADS 1: Very low (Highly unlikely) PI-RADS 2: Low (Unlikely) PI-RADS 3: Intermediate (Equivocal) PI-RADS 4: High (Likely) PI-RADS 5: Very High (Highly likely) (All PI-RADS 3, 4 and 5 lesions are alma ed in DynaCAD for possible fusion biopsy) [facility]-[id number] Procedure Note Hm Interface, Radiology Results - 10/24/2019 10:56 AM CDT EXAMINATION: MRI PROSTATE WWO CONTRAST CLINICAL HISTORY: 58 years Male R97.20 Elevated prostate specific antigen (PSA), elev psa COMPARISON: None. TECHNIQUE: Using a pelvic phased array c oil, multiplanar, multisequence MRI of the pelvis was performed with a prostate-specific protocol with and without contrast. Diffusion weighted images and dynamic contrast enhanced images were performed. The examination was performed using a 3T mag net. IMAGE QUALITY: The image quality is sat isfactory. IMPRESSION: 1. Size: The prostate gland measures 3.2 x 3.8 x 3.0 cm. Calculated prostatic volume (ellipsoid model) is 19.10 cc. 2. Central gland: In the anterior centra l gland towards the apex, there is a T2 low signal lesion measuring approximately 1.1 x 1.3 x 1.3 cm, with ill-defined borders. It is associated with hypervascularity as well as restricted diffusion. 3. Peripheral zone: No significant lesio n identified. 4. Seminal vesicles: Normal. 5. Extracapsular extension: There is mil d bulging of the anterior capsule without clear extracapsular extension. 6: Bladder: Normal. 7. Lymph nodes: Nonspecific pelvic sidew all and inguinal nodes are seen, measuring less than 1 cm in short axis. 8. Musculoskeletal: No focal marrow repl acing abnormality. 9. Other: No additional signaificant f indings. PI-RADS score: 4 PI-RADS score: The presence of a signifi cant prostate cancer is: PI-RADS 1: Very low (Highly unlikely) PI-RADS 2: Low (Unlikely) PI-RADS 3: Intermediate (Equivocal) PI-RADS 4: High (Likely) PI-RADS 5: Very High (Highly likely) (All PI-RADS 3, 4 and 5 lesions are alma ed in DynaCAD for possible fusion biopsy) [facility]-[id number] Performing Organization Address City/State/ZIP Code Phon e Number [facility] [address] [place] [address] after 08/16/2019 [phone] (Work) Advance Directives For more information, please contact: [phone] Type Date Recorded Patient Poultry Trimmer Explanati on Advance Directives, Living Will 03/20/2020 3:14 PM and Medical Power of Bolt Labeler Code Status Date Activated Date Inactivated Comments Full Code 03/20/2020 7:57 PM 03/22/2020 5:40 PM Code Status decision reached by: Patient
--- OUTSIDE RECORDS SUMMARY | 2020-08-16 08:50 | XMS REPORT | Continuity of Care Document ---
:1960 Author Organization [facility] t Address [address] [place] [address] Care Team Providers Name Role Phone GenaLidia ritter Primary Care Physician Unavailable Ludy Malik MD Attending Clinician Lab, Ad[facility] Fam Pob I Attending Clinician Unavailable Jose JUNIOR Attending Clinician Unavailable Adam JUNIOR Attending Clinician Unavailable Freedom BERGERON, Anabel Thomas Attending Clinician Annmarie Escalera MD Attending Clinician Toño Attending Clinician Unavailable Jane Blankenship NP Attending Clinician Yelitza BERGERON Attending Clinician Cindy Bronson MD Attending Clinician Annamaria BERGERON Attending Clinician Gregorio Chavez RN Attending Clinician Unavailable Grey Young MD Attending Clinician Doctor Unassigned, Name Attending Clinician Unavailable Griffin Cisse MD Attending Clinician Jonathan Estes APRN Attending Clinician SOPHIE Admitting Clinician Unavailable MAXX Admitting Clinician Unavailable Payers Payer Name Policy Type Policy Effective Date Expiration Date [facility] Number [id number] CHOICE [id number] 2018 [place] PPO/FEDERAL 00:00:00 Ca[facility]ism EMPL [id number] 2018-Prese ntPPO Problems Condition Condition Condition Status Onset Resolution Last Treating Co mments Source Name Details Category Date Date Treatment Clinician Date Intra-abdo Intra-abdo Disease Active 2020- [place] shameka shameka 8 [facility] fluid fluid 00:00: st collection collection 00 Fluid Fluid Disease Active [place] collection collection 03-20 Me th[place] at at 00:00: st surgical surgical 00 site site YOSSI drain YOSSI drain Disease Active [place] bleeding bleeding 02-21 Method i 00:00: st 00 Prostate Prostate Disease Active [place] cancer cancer 01-12 Methodi 00:00: st 00 Allergies, Adverse Reactions, Alerts This patient has no known allergies or adverse reactions. Social History Social Habit Start Date Stop Date Quantity Comments Source History of tobacco 1989-07-31 Current smoker Arnoldo hwang use 00:00:00 [facility] Sex Assigned At M [place] [facility] Cigarettes smoked 2020-05-12 2020-05-12 [place] current (pack per 00:00:00 00:00:[address] day) - Reported Cigarette 2020-05-12 2020-05-12 [place] pack-years 00:00:00 00:00:00 [facility] Tobacco use and 2020-05-12 2020-05-12 Never used [place] exposure 00:00:00 00:00:00 [facility] Alcohol intake 2020-05-12 2020-05-12 Ex-drinker [place] 00:00:00 00:00:00 (finding) [facility] Tobacco Comment 2020-02-18 2020-02-18 quit 10 years ago Arnoldo stuart 00:00:00 00:00:00 [facility] Alcohol Comment 2020-02-18 2020-02-18 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 Clinician (SIG) Name Name testosteron 2020-2020- Yes INJECT 1 [place] e cypionate 12 04-12 ML (200 MG M ethodi (DEPOTESTOT 00:00: 23:59 TOTAL) st ERONE 00 :00 INTO THE CYPIONATE) SHOULDER, 200 mg/mL THIGH, OR injection BUTTOCKS EVERY 14 DAYS X90 DAYS syringe 2019-07 No 22g Q14D 22 g every [place] ston with needle 0-16 - 14 [facility] (BD 00:00: 23:59 (fourteen) st Luer-Mervat 00 :00 days for Syringe) 3 90 days. mL 22 gauge x 1" syringe safety 2019-07 No 18g Q14D 18 g every [place] needles (BD 016 08-13 14 [facility] SafetyGlide 00:00: 23:59 (fourteen) st Needle) 18 00 :00 days for gauge x 1 90 days. 1/2" needle testosteron 2019-07- No 200mg Q14D Inject 1 [place] e cypionate 0-16 01-12 mL (200 mg M ethodi (Depo-Testo 00:00: 00:00 total) st sterone) 00 :00 into the 200 mg/mL shoulder, injection thigh, or buttocks every 14 (fourteen) days for 90 days. FLUoxetine 2020-0 Yes 20mg QD Take 20 mg [place] (PROzac) 20 8-23 by mouth Meth dylon MG capsule 13:40: daily. st 05 acetaminoph 2020-0 Yes 500mg Q6H Take 500 [place] en 8-23 mg by Method[facility] (TYLENOL) 13:40: mouth st 500 MG 05 every 6 tablet (six) hours as needed for mild pain. apixaban 2019- 2020- No 5mg Q.5D Take 1 [place] (ELIQUIS) 5 8-23 11-21 tablet (5 Me thodi mg tablet 00:00: 23:59 mg total) st 00 :00 by mouth 2 (two) times a day for 90 days. apixaban 2019-0 2020- No 10mg Q.5D Take 2 [place] (ELIQUIS) 5 8-23 11-21 tablets Meth dylon mg tablet 00:00: 23:59 ([address] 00 :00 total) by mouth 2 (two) times a day for 90 days. sulfamethox 2019-2019- No 1{tbl} Q.5D Take 1 [place] azole-trime 8-23 08-30 tablet by Me thodi thoprim 00:00: 23:[address] (Bactrim 00 :00 (two) DS) 800-160 times a mg per day for 7 tablet days. HYDROcodone 2019- 2020- No acute pain 1{tbl} Q8H Take 1 [place] -acetaminop 03-20- tablet by [facility] hen (NORCO) 21:32: 00:[address] 10-325 mg 25 :00 every 8 per tablet (eight) hours as needed for moderate pain .acute pain. sulfamethox 2019-0 2020- No 1{tbl} Q.5D Take 1 [place] azole-trime 8-14 - [facility] (BACTRIM 00 :00 (two) DS) 800-160 times a mg per day for 7 tablet days. sulfamethox 2020-0 2020- No 1{tbl} Q.5D Take 1 [place] azole-trime 8- 08- [facility] (Bactrim 00 :00 (two) DS) 800-160 times a mg per day for 7 tablet days. oxybutynin 2019-0 2020- No 10mg Q24H Take 1 [place] XL 02-26- tablet (10 Method[facility] (Ditropan 00:00: 00:00 mg total) st XL) 10 MG 00 :00 by mouth 24 hr daily as tablet needed (bladder spasms) for up to 30 days. oxybutynin 2019-0 2020- No 10mg QD Take 1 [place] XL 730 -30 tablet (10 Method[facility] (Ditropan 00:00: 00:00 mg total) st XL) 10 MG 00 :00 by mouth 24 hr daily. tablet docusate 2019-0 2020- No 100mg Q.5D Take 1 [place] sodium 02-21- capsule Methodi (Colace) 00:00: 00:00 ([address] 100 MG 00 :00 total) by capsule mouth 2 (two) times a day for 30 days. traMADoL 2019-0 2020- No acute pain 50mg Q6H Take 1 [place] (ULTRAM) 50 02-21- tablet (50 M ethodi mg tablet 00:00: 23:59 mg total) st 00 :00 by mouth every 6 (six) hours as needed for moderate pain for up to 7 days .acute pain. ciprofloxac 2019-2019- No 500mg Q.5D Take 1 [place] in (Cipro) 02-2130 tablet Method i 500 MG 00:00: 23:59 ([address] tablet 00 :00 total) by mouth 2 (two) times a day for 5 days. Start 1 day prior to tran catheter removal tiZANidine 2019-0 2019- No Q8H every 8 [place] ston (ZANAFLEX) 02-20 (eight) Metho di 4 MG tablet 19:56: 00:[address] 41 :00 tadalafiL 2019-2019- No 20mg Q1W Take 1 [place] (CIALIS) 20 02-17 tablet (20 M ethodi mg tablet 00:00: 00:00 mg total) st 00 :00 by mouth every 7 days for 30 days. tadalafiL 2019-2019- No 5mg Q24H Take 1 [place] (CIALIS) 5 02-17 tablet (5 Met hodi MG tablet 00:00: 00:00 mg total) st 00 :00 by mouth daily as needed for erectile dysfunctio n for up to 30 days. gentamicin 2019-2019- No Elevated 80mg [place] (GARAMYCIN) 12-29 PSA Methodi injection 14:45: 14:38 st 80 mg 00 :00 levoFLOXaci 2019- 2020- No Start [place] n 12-24 prior to Methodi (Levaquin) 00:00: 23:59 procedure, st 750 MG 00 :00 one tablet tablet daily simvastatin 2019- Yes 10mg QD Take 10 mg Ty (ZOCOR) 10 3-17 by mouth Metho di MG tablet 00:00: daily. st 00 Vital Signs Vital Name Observation Time Observation Value Comments Source Body height 2020-05-12 17:52:00 170.2 cm [place] Body weight 2020-05-12 17:52:00 106.595 kg [place] BMI 2020-05-12 17:52:00 36.81 kg/m2 [place] Systolic blood 2020-03-22 08:37:28 130 mm[Hg] Linden Nguyenist pressure Diastolic blood 2020-03-22 08:37:28 71 mm[Hg] [place] Caodaism pressure Heart rate 2020-03-22 08:37:28 97 /min Ty Sous[place] Body temperature 2020-03-22 08:37:28 36.5 [place] Mckay davidson Caodaism Respiratory rate 2020-03-22 08:37:28 19 /min Mckay Sousa Oxygen saturation in 2020-03-22 08:37:28 95 /min Ty Sousa Arterial blood by Pulse oximetry Procedures Procedure Date / Time Performing Clinician Source Performed MRI PITUITARY W WO 2020-05-12 18:40:00 Ludy Malik M ethodist CONTRAST MRI PELVIS W WO CONTRAST 2020-05-05 18:15:00 Ludy Malik MRI ABDOMEN W WO CONTRAST 2020-05-05 17:50:00 Aakash Escalera TESTOSTERONE LEVEL, FREE 2020-04-29 14:14:00 Ludy Malik AND TOTAL, MALE ESTRADIOL LEVEL 2020-04-29 14:14:00 Ludy Malik oddenita PROLACTIN LEVEL 2020-04-29 14:14:00 Ludy Malik Meth oddenita FOLLICLE STIMULATING 2020-04-29 14:14:00 Ludy Malik HORMONE LUTEINIZING HORMONE 2020-04-29 14:14:[address] ABDOMEN PELVIS W 2020-04-22 10:33:07 Aakash Escalera CONTRAST CBC WITH PLATELET AND 2020-04-20 10:43:00 Aakash Escalera DIFFERENTIAL TESTOSTERONE LEVEL, FREE 2020-04-20 10:43:00 Aakash Escalera AND TOTAL, MALE PSA, ULTRASENSITIVE 2020-04-20 10:43:[address] GUIDED ABSCESS DRAIN 2020-03-21 19:07:30 Chaya Mcdonough US 2020-03-21 17:25:00 Chaya Mcdonough oddenita PERITONEAL/RETROPERITONEA L DRAIN PROTHROMBIN TIME WITH INR 2020-03-21 05:00:00 Chaya Mcdonough PARTIAL THROMBOPLASTIN 2020-03-21 05:00:00 Chaya Mcdonough on Caodaism TIME (PTT) BASIC METABOLIC PANEL 2020-03-21 05:00:00 Chaya Mcdoonugh CBC WITH PLATELET AND 2020-03-21 05:00:00 Chaya Mcdonough Caodaism DIFFERENTIAL ESTIMATED GFR 2020-03-21 05:00:00 Gerardo Yin Meth odist URINE CULTURE 2020-03-20 21:50:00 Koki Torre Meth oddenita URINALYSIS SCREEN AND 2020-03-20 21:50:00 Koki Torre MICROSCOPY, WITH REFLEX TO CULTURE US DUPLEX VENOUS LOWER 2020-03-20 21:37:31 Chaya Mcdonough on Caodaism EXTREMITY BILATERAL LACTIC ACID LEVEL, SEPSIS 2020-03-20 20:01:00 Koki Torre Caodaism - NOW AND REPEAT 2X EVERY 3 HOURS COVID-19 QUALITATIVE PCR 2020-03-20 17:20:00 Koki Torre ston Caodaism LACTIC ACID LEVEL, SEPSIS 2020-03-20 17:20:00 Koki Torre Caodaism - NOW AND REPEAT 2X EVERY [address] ABDOMEN PELVIS W 2020-03-20 16:36:17 Koki Torre CONTRAST HC COMPLETE BLD COUNT 2020-03-20 14:55:00 Koki Torre W/AUTO DIFF PROTHROMBIN TIME WITH INR 2020-03-20 14:55:00 Koki Torre Caodaism PARTIAL THROMBOPLASTIN 2020-03-20 14:55:00 Koki Torre on Caodaism TIME (PTT) COMPREHENSIVE METABOLIC 2020-03-20 14:55:00 Koki Torre Caodaism PANEL ESTIMATED GFR 2020-03-20 14:55:00 Koki Torre Meth odist LACTIC ACID LEVEL, SEPSIS 2020-03-20 14:55:00 Koki Torre usstuart Caodaism - NOW AND REPEAT 2X EVERY 3 HOURS US SOFT TISSUE DRAIN 2020-03-06 11:20:00 Aakash Escalera AEROBIC CULTURE 2020-03-06 11:15:00 Aakash Escalera Meth odist ANAEROBIC CULTURE 2020-03-06 11:15:00 Miles, Aakash Crawford Me thodist GRAM STAIN 2020-03-06 11:15:00 Miles, Aakash Crawford Meth odist CREATININE LEVEL, [facility] 2020-03-06 11:15:00 MilesAakash on Caodaism FLUID AEROBIC CULTURE 2020-03-06 10:58:00 Miles, Aakash [place] Meth odist ANAEROBIC CULTURE 2020-03-06 10:58:00 Miles, Aakash Crawford Me thodist GRAM STAIN 2020-03-06 10:58:00 Miles, Aakash Crawford Meth odist CREATININE LEVEL, [facility] 2020-03-06 10:58:00 Miles, Aakash Nicolas on Caodaism FLUID US SOFT TISSUE DRAIN 2020-03-06 10:45:00 MilesAakash Caodaism FL CYSTOGRAM MINIMUM 3 VW 2020-03-05 12:29:58 Miles, Aakash hwang Caodaism CT ABDOMEN PELVIS W 2020-03-03 14:31:02 MilesAakash CONTRAST CREATININE LEVEL, [facility] 2020-03-03 13:25:00 MilesAakash on Caodaism FLUID FL CYSTOGRAM MINIMUM 3 VW 2020-02-27 12:15:01 Miles, Aakash millerton Caodaism HC COMPLETE BLD COUNT 2020-02-24 05:00:00 Susanne Geller Caodaism W/AUTO DIFF BASIC METABOLIC PANEL 2020-02-24 04:00:00 Susanne Geller Caodaism MAGNESIUM LEVEL 2020-02-24 04:00:00 Susanne Geller Meth odist PHOSPHORUS LEVEL 2020-02-24 04:00:00 Susanne Geller Met hodist ESTIMATED GFR 2020-02-24 04:00:[address] Meth odist [address] ABDOMEN PELVIS W WO 2020-02-23 11:39:11 Susanne Geller on Caodaism CONTRAST HC COMPLETE BLD COUNT 2020-02-23 04:30:00 Susanne Geller Caodaism W/AUTO DIFF BASIC METABOLIC PANEL 2020-02-23 04:00:00 Susanne Geller n Caodaism MAGNESIUM LEVEL 2020-02-23 04:00:00 Susanne Geller Meth odist PHOSPHORUS LEVEL 2020-02-23 04:00:00 Susanne Geller Met hodist ESTIMATED GFR 2020-02-23 04:00:00 Aakash Escalera oddenita HC COMPLETE BLD COUNT 2020-02-22 20:30:00 Susanne Gellerjhonny n Caodaism W/AUTO DIFF BASIC METABOLIC PANEL 2020-02-22 20:30:00 Susanne Geller [place] Caodaism MAGNESIUM LEVEL 2020-02-22 20:30:00 Susanne Geller Meth odist PHOSPHORUS LEVEL 2020-02-22 20:30:00 Susanne Geller Met hodist ESTIMATED GFR 2020-02-22 20:30:00 Aakash Escalera Meth odist HEMOGLOBIN 2020-02-22 04:00:00 Rolf Bradshawt on Caodaism HEMATOCRIT 2020-02-22 04:00:00 Rolf Bradshawt on Caodaism BASIC METABOLIC PANEL 2020-02-22 04:00:00 Rolf Bradshaw ESTIMATED GFR 2020-02-22 04:00:00 Aakash Escalera odist HEMATOCRIT 2020-02-21 17:40:00 Rolf Bradshaw [place] [facility] HEMOGLOBIN 2020-02-21 17:40:00 Rolf Bradshaw [place] [facility] BASIC METABOLIC PANEL 2020-02-21 17:40:00 Rolf Bradshaw ESTIMATED GFR 2020-02-21 17:40:00 Aakash Escalera SURGICAL PATHOLOGY 2020-02-21 15:33:00 Aakash Escalera ethodist REQUEST VT AN ELECTIVE 2020-02-21 13:19:41 Rachel Salvador ENDOTRACHEAL AIRWAY Gina PROSTATECTOMY, 2020-02-21 12:36:00 Aakash Escalera LAPAROSCOPIC, ROBOT-ASSISTED URINE CULTURE 2020-02-18 11:58:00 Carin Estesst ECG PRE/POST OP 2020-02-18 10:54:34 Carin Estesst COVID-19 QUALITATIVE PCR 2020-02-18 10:41:00 Zachary Blankenship URINALYSIS SCREEN AND 2020-02-18 10:41:00 Carin Estes MICROSCOPY, WITH REFLEX TO CULTURE TYPE AND SCREEN 2020-02-18 10:41:00 Carin Estes ethemeka PARTIAL THROMBOPLASTIN 2020-02-18 10:41:00 Carin Estes TIME (PTT) PROTHROMBIN TIME WITH INR 2020-02-18 10:41:00 Carin Estes COMPREHENSIVE METABOLIC 2020-02-18 10:41:00 Carin Estes PANEL HC COMPLETE BLD COUNT 2020-02-18 10:41:00 Carin Estes W/AUTO DIFF TESTOSTERONE LEVEL, FREE 2020-02-18 10:41:00 Zachary Blankenship AND TOTAL, MALE Jane HIV AG/AB COMBINATION 2020-02-18 10:41:00 Zachary Blankenshipsey ESTIMATED GFR 2020-02-18 10:41:00 Carin Estes ethodist US PROSTATE BIOPSY 2019-12-30 13:48:54 Ludy Malik ethodist MRI PROSTATE WWO CONTRAST 2019-10-24 10:15:00 Ludy Malik Plan of Care Planned Activity Planned Date Details Comments Source Future Scheduled 2020-02-29 INFLUENZA VACCINE [place] [facility] Test 00:00:00 [code = INFLUENZA VACCINE] Future Scheduled 2011-11-28 COLONOSCOPY SCREENING Arnoldo Nguyenist Test 00:00:00 [code = COLONOSCOPY SCREENING] Future Scheduled 2011-11-28 SHINGLES VACCINES [place] [facility] Test 00:00:00 (#1) [code = SHINGLES VACCINES (#1)] Future Scheduled 1977 COVID-19 VACCINE (1 [place] [facility] Test 00:00:00 of 2) [code = COVID-19 VACCINE (1 of 2)] Encounters Start End Encounter Admission Attending Care Care Encounter Source Date/Time Date/Time Type Type Clinicians Facility Department ID 2020-08-05 2020-08-05 Laboratory Lab, [facility] [id number] 09:36:37 09:56:37 Only Fam Pob I Health [id number] [place] [id number] Dior [id number] nal 044 Office [facility] One 2020-05-12 2020-05-12 Outpatient ERIN, [facility] [id number] [place] 00:00:00 00:00:00 LUDY [address] 2020-05-05 2020-05-05 Outpatient ERIN, [facility] [id number] [place] 00:00:00 00:00:00 LUDY [address] 2020-05-05 2020-05-05 Outpatient MAXX, [facility] [id number] [place] 00:00:00 00:00:00 AAKASH [address] 2020-04-29 2020-04-29 Outpatient ERIN, [facility] [id number] [place] 00:00:00 00:00:00 LUDY [address] 2020-04-22 2020-04-22 Outpatient MAXX, [facility] [id number] [place] 00:00:00 00:00:00 AAKASH [address] 2020-04-20 2020-04-20 Outpatient MAXX, [facility] [id number] [place] 00:00:00 00:00:00 AAKASH [address] 2020-03-30 2020-03-30 Outpatient [facility] [id number] [place] 00:00:00 00:00:[address] 2020-03-20 2020-03-22 Inpatient ANNAMARIA, [facility] [id number] [place] 00:00:00 00:00:00 GERARDO [address] 2020-03-17 2020-03-17 Outpatient [facility] [id number] [place] 00:00:00 00:00:[address] 2020-03-06 2020-03-06 Outpatient MAXX, [facility] [id number] [place] 00:00:00 00:00:00 AAKASH [address] 2020-03-06 2020-03-06 Outpatient MAXX, [facility] [id number] [place] 00:00:00 00:00:00 AAKASH [address] 2020-03-05 2020-03-05 Outpatient [facility] [id number] [place] 00:00:00 00:00:[address] 2020-03-05 2020-03-05 Outpatient MILES, [facility] [id number] [place] 00:00:00 00:00:00 AAKASH [address] 2020-03-03 2020-03-03 Outpatient MILES, [facility] [id number] [place] 00:00:00 00:00:00 AAKASH [address] 2020-03-03 2020-03-03 Outpatient MILES, [facility] [id number] [place] 00:00:00 00:00:00 AAKASH [address] 2020-03-03 2020-03-03 Outpatient MILES, [facility] [id number] [place] 00:00:00 00:00:00 AAKASH [address] 2020-02-27 2020-02-27 Outpatient [facility] [id number] [place] 00:00:00 00:00:[address] 2020-02-27 2020-02-27 Outpatient MILES, [facility] [id number] [place] 00:00:00 00:00:00 AAKASH [address] 2020-02-22 2020-02-24 Outpatient MILES, [facility] [id number] [place] 00:00:00 00:00:00 AAKASH [address] 2020-02-22 2020-02-22 Emergency Kaale, [facility] [id number] 16:09:09 18:44:00 Jagdish Quick [id number] [place] [id number] [place] [id number] 2020-02-22 2020-02-22 Orders Doctor ALEXSANDRA [id number] 00:00:00 00:00:00 Only Unassigned, MCKENZIE [id number] [place] [facility] [id number] 2020-02-21 2020-02-22 Outpatient MILES, [facility] [id number] [place] 00:00:00 00:00:00 AAKASH [address] 2020-02-18 2020-02-18 Outpatient MILES, [facility] [id number] [place] 00:00:00 00:00:00 AAKASH [address] 2020-02-18 2020-02-18 Outpatient [facility] [id number] [place] 00:00:00 00:00:[address] 2020-02-18 2020-02-18 Outpatient MAXX [facility] [id number] [place] 00:00:00 00:00:00 AAKASH [address] 2020-02-04 2020-02-04 Outpatient MAXX [facility] [id number] [place] 00:00:00 00:00:00 AAKASH [address] 2020-01-13 2020-01-13 Outpatient ERIN [facility] [id number] [place] 00:00:00 00:00:00 LUDY [address] 2019-12-30 2019-12-30 Outpatient ERIN [facility] [id number] [place] 00:00:00 00:00:00 LUDY [address] 2019-12-30 2019-12-30 Outpatient ERIN [facility] [id number] [place] 00:00:00 00:00:00 LUDY [address] 2019-10-24 2019-10-24 Outpatient ERIN [facility] [id number] [place] 00:00:00 00:00:00 LUDY [address] 2019-10-18 2019-10-18 Outpatient ERIN [facility] [id number] [place] 00:00:00 00:00:00 LUDY [address] Results Test Description Test Time Test Comments Results Result Sourc e Comments MRI Pituitary W 2020-04-30 Interface, [place] Wo Contrast 3 Radiology Results Method ist 19:22:23 - 05/12/2020 7:25 PM CDTEXAMINATION: MRI PITUITARY W WO CONTRASTCLINICAL HISTORY: R79.89 Other specified abnormal findings of blood chemistry, elevated prolactinCOMPARISON: None.Findings:No intracranial hemorrhage, acute ischemia, extra-axial fluid collections or parenchymal mass lesions. No hydrocephalus. No suspicious focal bone marrow lesions. No abnormal postcontrast enhancement the brain.No abnormal signal, masses or enhancement in the sella, cavernous sinuses, infundibulum or suprasellar cistern. Optic chiasm is within normal limits. ICA flow voids are maintained.IMPRESSION :No acute intracranial abnormalities or mass lesions.Unremarkable evaluation of the pituitary gland.[id number] MRI Abdomen W Wo 2020-10-0 Hm Interface, [place] Contrast [address] 19:35:54 Incoming - 05/05/2020 7:39 PM CDTEXAMINATION: MRI ABDOMEN W WO CONTRASTCLINICAL HISTORY: N28.89 Other specified disorders of kidney and ureter, renal massTECHNIQUE: Multiplanar multisequence MR images of the abdomen were obtained pre- and post dynamic intravenous administration of Gadolinium.COMPARISON : CT from 04/22/2020 IMPRESSION: Liver: There is mild fatty infiltration of liver. No focal mass.Gallbladder/Bili germaine: The gallbladder is normal. There is no evidence of intra or extrahepatic biliary ductal dilatation.Spleen: The spleen is not enlarged.Pancreas: Pancreas is unremarkable.Adrenal Glands: The adrenal glands are unremarkable.Kidneys: There is a 1.2 cm cyst in the inferior pole of the left kidney corresponding to the lesion seen on recent MRI. Couple of thin septations (series 9 image 15 and minimal wall enhancement noted (series 11 image 44) consistent with a Bosniak 2F. There is a 1 cm simple cyst in mid left kidney. A couple of tiny cysts in the right kidney. Vascular: The abdominal aorta is nonaneurysmal.Nodes: No enlarged retroperitoneal or mesenteric lymphadenopathy.Bowel : There are scattered diverticula in the colon without evidence of diverticulitis. There is a 3 cm diverticulum from the distal third portion of the duodenum. Ascites/fluid collections: No ascites or fluid collections.Bone marrow: Kyphoplasty signal alteration present in the upper lumbar spine. No suspicious marrow signal abnormality identified.Other: None.Summary:1.2 cm cyst in the inferior left kidney demonstrates couple of thin septations and minimal wall thickening suggesting a complex cyst (Bosniak 2F). [id number] MRI Pelvis W Wo 2019-10-0 Hm Interface, [place] Contrast [address] 18:56:07 Incoming - 05/05/2020 6:59 PM CDTEXAMINATION: MRI PELVIS W WO CONTRASTCLINICAL HISTORY: R18.8 Other ascites, N28.89 Other specified disorders of kidney and ureter, pelvic painTECHNIQUE: Multiplanar multisequence MR images of the pelvis were obtained pre- and post intravenous administration of Gadolinium.COMPARISON : MRI from 10/24/[address] from 04/22/2020 IMPRESSION: 1. Status post prostatectomy. Bladder is normal in appearance.2.1.3 x 2.6 x 2.1 cm lymphocele along the left anterior pelvic sidewall that measured 1.5 x 3.5 x 2.[address]3.There are nonspecific mildly enlarged bilateral pelvic sidewall [...] the right side measuring 1.8 x 2.6 cm.4.The small amount of edema in the left abductor muscle suggesting mild strain.5.No suspicious marrow signal abnormality noted.Summary:1.Statu s post prostatectomy. 1.3 x 2.6 x 2.1 cm left pelvic sidewall lymphocele appears slightly decreased from prior CT of 04/22/2020.2.Nonspecif ic mildly enlarged pelvic sidewall nodes. [id number] Testosterone level, free and total, male 2020-05-02 17:07:00 Test Item Value Reference Range Interpretation Comme nts Testosterone (test code = 93 ng/dL 264-916 L Ad ult male reference interval 2986-8) is based on a p opulation ofhealthy nonob janneth males (BMI <30) between 19 and 39 years old.rubina Figueroa t.al. JCEM 2017,102;1161-1 173. PMID: 38842889. Testosterone, free (test 6.1 pg/mL 7.2-24 L code = 2991-8) PETE (test code = PETE) Performed at: 01 - [facility] [id number] Director: Garo Atkins MD, Phone: [phone] at: - [facility] [id number] Director: Patricio Bull MD, Phone: [phone] Lab Interpretation (test Abnormal code = 29338-1) [place] [facility] [id number] 10:11:00 Test Item Value Reference Range Interpretation Comments Follicle stimulating 5.2 1.5- 12.4 mIU/mL hormone (test code = 38599-3) PETE (test code = PETE) Performed at: [address] [place] [id number] Director: Garo Atkins MD, Phone: [phone] [place] [id number] 10:11:00 Test Item Value Reference Range Interpretation Comments Luteinizing hormone 3.2 1.7- 8.6 mIU/mL (test code = 73775-4) PETE (test code = PETE) Performed at: [address] [place] [address] [id number] Director: Garo Atkins MD, Phone: [phone] [place] MethodistEstradiol [id number] 10:11:00 Test Item Value Reference Range Interpretation Comments Estradiol (test 9.0 pg/mL 7.6-42.6 Vance ECLIA code = 2243-4) methodology PETE (test code = Performed at: PETE) - [address] [id number] Director: Garo Atkins MD, Phone: [phone] [place] MethodistProlactin [id number] 10:11:00 Test Item Value Reference Range Interpretation Comments Prolactin (test code = 26.3 ng/mL 4-15.2 H 2842-3) PETE (test code = PETE) Performed at: [address] [place] [address] [id number] Director: Garo Atkins MD, Phone: [phone] Lab Interpretation (test Abnormal code = 08287-4) [place] MethodistCT Abdomen Pelvis W [id number] 10:50:14Hm Interface, Radiology Results 04/22/2020 10:53 AM CDTEXAMINATION: CT ABDOMEN PELVIS W CONTRASTCLINICAL HISTORY: 59 years old Male. 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 Oral contrast was not administered. Sagittal and coronal computerized reformatted images were also obtained. CT imaging was performed with iterative reconstruction techniques and/or automated exposure control to reduce radiation dose. COMPARISON: CT abdomen pelvis 03/20/2020, 03/03/2020, 02/23/2020IMPRESSION:LOWER CHEST:Visualized lower thorax:Lung bases: No significant pleural effusion. Lower mediastinum: Cardiac size is normal. No pe ricardial effusion. ABDOMEN:Upper abdominal organs: Liver: Measures 16 cm in craniocaudal dimension.Mild hypertrophy of the left hemiliver. Smooth contour. No discrete enhancing lesions. Gallbladder: Normal, not distended. Spleen: Normal.Pancreas: Normal.Adrenal Glands: Normal.Kidneys: There is a 1.7x 1.6 cm intermediate density lesion in the left kidney inferior pole (series 301, image 91), not significantly changed from 02/23/2020 examination. 9 mm hypoattenuating lesion in the left kidney interpolar region, likely a cyst. No hydronephrosis. No obstructing renal or ureteral calculi.Bowel and mesentery: Large and small bowel are normal in caliber without focal wall thickening or mesenteric fat st randing. Few scattered diverticula of the descending colon. Normal appendix. The bowel is otherwise normal.No free intraperitoneal gas or fluid. Vasculature: Abdominal aorta is of normal caliber. Celiac artery, superior and inferior mesenteric arteries, superior mesenteric and portal veins appear patent. Moderate calcified and non-calcified atherosclerotic disease of the abdominal aorta and branchvessels.Lymph nodes: No abdominal or retroperitoneal lymphadenopathy. PELVIS:Urinary bladder: Decompressed, mildly thick-walled. Prostatectomy postoperative changes.There is decreased size of a 3.5 x 1.9 cm low-density fluid collection along the left pelvic sidewall (series 301, image 151), previously 7.2 x 4.0 cm on the 03/20/2020 examination.Lymph nodes: Borderline mildly enlarged right greater than left inguinal lymph nodes are again noted with normal fatty vazquez, not significantly changed. Borderline mildly enlarged right external iliac lymph node (series 301, image 148) measuring 1.9 x 1.1 cm, not significantly changed. Left external iliac lymph node (series 301, image 155) measuring 1.2 x 1.0cm, not significantly changed. Bilateral common iliac lymph nodes are also mildly enlarged, not significantly changed. For reference, right common iliac lymph node (series 301, image 119) measures 1.2 x 1.1 cm and left common iliac lymph node (series 301, image 118) measures 1.7 x 1.1 cm.MUSCULOSKELETAL: L1 and L2 kyphoplasty posttreatment changes. Mild superior endplate Schmorl's node involving the L3 vertebral body, similar to prior. Small ventral abdominal umbilical hernia containing fat. Age appropriate degenerative changes of the spine.SUMMARY:1. Prostatectomy postoperative changes with decreased size of 3.5 x 1.9 cm low-density fluid collection along the left pelvic sidewall, likely postoperative seroma or lymphocele.2. Borderline mildly enlarged bilateral inguinal, external and common iliac lymph nodes, not significantly changed, possibly reactive, however metastatic disease is not excluded.3. 1.7 cm intermediate density lesion arising from the left kidney, inferior pole, indeterminate. Renal ultrasound can be performed for further evaluation to exclude a solid lesion, if indicated clinically. [facility]-[id number] Specialty and Transplant Hospital with platelet and tocmbogfqrsl7621-30-13 10:11:00 Test Item Value Reference Range Interpretation Comments WBC (test code = 6690-2) 8.6 3.4- 10.8 x10E3/uL RBC (test code = 789-8) 4.31 4.14- 5.80 x10E6/uL HGB (test code = 718-7) 12.7 g/dL 13-17.7 L HCT (test code = 4544-3) 38.3 % 37.5-51 MCV (test code = 787-2) 89 fL 79-97 MCH (test code = 785-6) 29.5 pg 26.6-33 MCHC (test code = 786-4) 33.2 g/dL 31.5-35.7 RDW (test code = 788-0) 13.1 % 11.6-15.4 Platelet count (test 319 150- 450 x10E3/uL code = 777-3) Neutrophils (test code = 66 % Not Estab. 770-8) Lymphocytes (test code = 19 % Not Estab. 736-9) Monocytes (test code = 10 % Not Estab. 5905-5) Eosinophils (test code = 4 % Not Estab. 713-8) Basophils (test code = 1 % Not Estab. 706-2) Neutrophils, absolute 5.7 1.4- 7.0 x10E3/uL (test code = 751-8) Lymphocytes, absolute 1.7 0.7- 3.1 x10E3/uL (test code = 731-0) Monocytes, absolute 0.9 0.1- 0.9 x10E3/uL (test code = 742-7) Eosinophils, absolute 0.3 0.0- 0.4 x10E3/uL (test code = 711-2) Basophils, absolute 0.0 0.0- 0.2 x10E3/uL (test code = 704-7) Immature granulocytes 0 % Not Estab. (test code = 13880-5) Immature grans (abs) 0.0 0.0- 0.1 x10E3/uL (test code = 67460-6) PETE (test code = PETE) Performed at: - [facility] [id number] Director: Garo Atkins MD, Phone: [phone] Lab Interpretation (test Abnormal code = 99293-7) [place] MethodistPSA, [id number] 10:11:00 Test Item Value Reference Interpretation Comments Range PSA, <0.014 0-4 Vance ECLIA ultrasensitive methodology.A ccording to (test code = the [place] Ur ological 55142-8) Association, Se rum PSA shoulddecrease and remain at undetectable levels after radicalprostate ctomy. The AUA defines bio chemical recurrence as a n initialPSA valu e 0.200 ng/mL or greate r followed by a subsequentconfi rmatory PSA value 0.200 ng/mL or greater.Values obtained with different assay methods or kits cannot be usedinterchange ably. Results cannot be interpreted as absolute evidenceof the presence or absence of m alignant disease. PETE (test code = Performed at: PETE) [facility] [id number] Director: Garo Atkins MD, Phone: [phone] [place] MethodistUS Peritoneal/Retroperitoneal Nuwax2024-36-00 13:15:00Hm Interface, Radiology Results 03/25/2020 1:18 PM CDTEXAMINATION: US PERITONEAL RETROPERITONEAL DRAINCLINICAL HISTORY: Lymphocele s p prostatectomyCOMPARISON: CT abdomen pelvis dated 03/20/2020TECHNIQUE:The risks, benefits, and alternatives were discussed with the patient and written informed consent was obtained. Initially, the patient was brought to the ultrasound procedure room. Thetendon was performed at 1% lidocaine was administered. An 18- gauge Chiba needle was advanced in the collection under image guidance. Although a small amount of fluid was aspirated and wire went freely,a pigtail catheter could not be within the collection. The decision was made to transfer the patientover to the CT scanner and performed the procedure under CT guidance. Axial images through the abscess were obtained. CT imaging was performed with iterative reconstruction techniques and/or automated exposure control to reduce radiation dose. A site for needle injury was selected and the skin was prepped and draped in the usual sterile fashion. After local administration of 1% buffered lidocaine, atiny dermatotomy was made. Using CT fluoroscopic guidance, a 18-gauge Chiba needle was inserted intothe fluid collection. Subsequently, an 8.5 Congolese was positioned within the fluid collection using Seldinger technique over a 0.035 inch stiff Amplatz wire. The catheter was secured to the skin and placed to YOSSI bulb drainage. The patient tolerated the procedure without difficulty and was discharged tothe radiology observation area for monitoring prior to discharge. Antibiotics:Antibiotic prophylaxiswas not given as the patient was already on scheduled intravenous antibiotics prior to the procedure Conscious sedation: Under physician supervision, a combination of intravenous Versed and fentanyl was given. Pulse oximetry, heart rate, and blood pressure were continuously monitored by an independenttrained observer present. . The physician spent a total of 21 minutes during the ultrasound procedure and [address] procedure of bifm-tq-gqqa sedation time with the patient.EBL: <10 ccComplications: None.Assistants: None.IMPRESSION:Ultimately successful placement of an 8.5 Congolese multipurpose drainage catheter into a left pelvic lymphocele under image guidance as described above.[facility]-[id number] MethodistCT Guided Abscess [id number] 13:14:51Hm Interface, Radiology Results - 03/25/2020 1:17 PM CDTEXAMINATION: CT GUIDED ABSCESS SYBIL INCLINICAL HISTORY: Lymphocele s p prostatectomyCOMPARISON: CT abdomen pelvis dated 03/20/2020TECHNIQUE:The risks, benefits, and alternatives were discussed with the patient and written informed consent was obtained. Initially, the patient was brought to the ultrasound procedure room. The tendon was performed at 1% lidocaine was administered. An 18-gauge Chiba needle was advanced in the collection under image guidance. Although a small amount of fluid was aspirated and wire went freely, a pigtail catheter could not be within the collection. The decision was made to transfer the patient over to theCT scanner and performed the procedure under CT guidance. Axial images through the abscess were obtained. CT imaging was performed with iterative reconstruction techniques and/or automated exposure control to reduce radiation dose. A site for needle injury was selected and the skin was prepped and draped in the usual sterile fashion. After local administration of 1% buffered lidocaine, a tiny dermatotomy was made. Using CT fluoroscopic guidance, a 18-gauge Chiba needle was inserted into the fluid collection. Subsequently, an 8.5 Congolese was positioned within the fluid collection using Seldinger technique over a 0.035 inch stiff Amplatz wire. The catheter was secured to the skin and placed to YOSSI bulb drainage. The patient tolerated the procedure without difficulty and was discharged to the radiology observation area for monitoring prior to discharge. Antibiotics:Antibiotic prophylaxis was not given as the patient was already on scheduled intravenous antibiotics prior to the procedure Conscious sedation: Under physician supervision, a combination of intravenous Versed and fentanyl was given. Pulse oximetry, heart rate, and blood pressure were continuously monitored by an independent trained observer present. . The physician spent a total of 21 minutes during the ultrasound procedure and [address] procedure of ydag-jg-vnrh sedation time with the patient.EBL: <10 ccComplications: None.Assistants: None.IMPRESSION:Ultimately successful placement of an 8.5 Congolese multipurpose drainage catheter into a left pelvic lymphocele under image guidance as described above.[facility]-[id number] MethodistUrinalysis screen and microscopy, with reflex to [id number] 11:37:26 Test Item Value Reference Range Interpretation Comments Specimen site (test code = Clean catch 6598717) Color, UA (test code = 5778-6) Straw Appearance, UA (test code = Clear 5767-9) Specific gravity, UA (test code = 1.047 1.001-1.035 H 5811-5) pH, UA (test code = 5803-2) 6.0 5.0-8.5 Protein, UA (test code = 44504-0) Negative Negative Glucose, UA (test code = 66857-4) Negative Negative Ketones, UA (test code = 2514-8) Negative Negative Bilirubin, UA (test code = Negative Negative 5770-3) Blood, UA (test code = 5794-3) Negative Negative Nitrite, UA (test code = 5802-4) Negative Negative Urobilinogen, UA (test code = <2.0 <2.0 94283-9) Leukocyte esterase, UA (test code Negative Negative = 5799-2) WBC, UA (test code = 5821-4) None seen 0- 1 /HPF RBC, UA (test code = 70694-7) 1 0- 5 /HPF Bacteria, UA (test code = None seen None seen 70762-6) Yeast, UA (test code = 25934-3) Few A Yeast with pseudohyphae, UA (test None seen code = 90212-4) Lab Interpretation (test code = Abnormal 73314-4) [facility] duplex venous lower vmesyfzdg0285-83-59 11:26:00Interface, Radiology Results In - 03/21/2020 11:27 AM CDT Vascular Ultrasound Laboratory Lower Extremity Venous Shrybk[address]Name: SAMIR CASTILLO Pat.ID: [id number] .Date: 03/20/2020 Refer.MD: GERARDO YIN MD Exam Time: 7:50:00 PM Study Type:LE Venous Height: 67in Weight: 225lb BSA: 2.13 m2 Age: 4 1960,59Y Sex: MALE Sonogrphr: Jaimes Vi, RVT Pat. Stat.:Inpatient Room: [address] Tape Vol: , CPT - 4: 30555 Echo Event ID:[id number] Order ID: [id number] Reason for Study:Bilateral leg swelling. History of bilaterallymphoceles, prostate cancer s/p RALP 02/21/20, intra- abdominal fluidcollection.Procedures: Colorflow, Grayscale/2D, Pulsed wave Doppler SUMMARY: DUPLEX SCAN OBSERVATIONS Deep Veins Superficial Veins Right Left Right LeftEIV GSV (prox) Normal NormalCFV Normal Normal (above knee)Femoral Normal Normal GSV (dist) Normal NormalProfunda Normal Normal (below knee )Popliteal Normal Partial/chronicPT (prox) Normal Normal SSV Normal NormalPT (dist) Normal Normal Peroneal Normal Normal Gastrocs Normal NormalRIGHT: There is normal compressibility with no evidence of echogenicmaterial noted within the lumen of the visualized veins.Colorflow andDoppler signals are normal. There is a non-vascularized structure seenin the groin area measuring approximately 2.94 cm x 0.84 cm. Colorflowand Doppler signals are absent. LEFT: The popliteal vein is compressible with bright string echogenicmaterial within the lumen. Colorflow and Doppler signals are present.There is a non-vascularized structure seen in the groin area measuringapproximately 2.50 cm x 0.90 cm. Colorflow and Doppler signals areabsent. PRELIMINARY FINDINGS:1. Partial/chronic deep venous thrombosis of left popliteal vein.2. Multiple non-vascularized structures at the groin area,bilaterally.Result given to TOMASA Amezcua at 21:45 PM on 03/20/2020.PHYSICIAN INTERPRETATION: 1. Partial/chronic deep venous thrombosis of left popliteal vein.2. Multiple prominent lymph nodes in the groin, bilaterally. FINDINGS: Signed 03/21/2020 11:26 MD Isai, FACS, [facility] MethodistProthrombin time with [id number] 06:28:25 Test Item Value Reference Range Interpretation Comments Prothrombin time (test 13.2 11.5- 14.5 sec code = 5902-2) INR (test code = 1.0 The Interna tional 31995-4) Normalized Rati o (INR) is a therapeutic m onitoring tool for patien ts who are stable on oral anticoagulant t herapy. An INR of 2.0-3.0 is suggested for d eep vein thrombosis/pulm onary embolism. [facility] MethodistBasic metabolic [id number] 06:18:04 Test Item Value Reference Range Interpretation Comments Sodium (test code = 2951-2) 138 135- 148 mEq/L Potassium (test code = 2823-3) 4.3 3.5- 5.0 mEq/L Chloride (test code = 2075-0) 100 98- 112 mEq/L CO2 (test code = 2028-9) 23 24- 31 mEq/L L Anion gap (test code = 33230-6) 15@ANIO 7- 15 mEq/L BUN (test code = 3094-0) 14 mg/dL 6-20 Creatinine (test code = 2160-0) 0.80 mg/dL 0.7-1.2 Glucose (test code = 2345-7) 113 mg/dL 65-99 H Calcium (test code = 94711-7) 9.4 mg/dL 8.3-10.2 Lab Interpretation (test code = Abnormal 37125-1) [facility] MethodistEstimated [id number] 06:18:04 Test Item Value Reference Range Interpretation Comments Estimated GFR (test >=90 mL/min/1.73 m2 [facility] Units code = 5488) InterpretationG 1 >=90 Normal or highG2 60-89 Mildly phnanimqmP7v 45-59 Mildly to mode rately qgoxudqmbN9z 30-44 Moderately to severely decreasedG4 15-29 Severely decre asedG5 <15 Kidn ey failureThe eGFR was calculated cass ambrocio the Chronic Kidney Disease Epidemiology Co llaboration (CKD-EPI) equat ion. Interpretation is based on recommendations of the National Kidney Foundation-Kidn ey Disease Outcomes Qualit y Initiative (NKF-KDOQI) pub lished in 2014. [facility] MethodistPartial thromboplastin time, eqajdppuj5700-00-70 06:06:15 Test Item Value Reference Range Interpretation Comments PTT (test code = 36.4 23.0- 36.0 sec H PTT thera peutic range 55301-7) for unfractiona olu heparin is61.0- 112.0 seconds which corresponds to Anti-Xa0.3-0.7 U/ml. Lab Interpretation Abnormal (test code = 44344-8) [facility] MethodistCOVID-19 qualitative [id number] 01:50:14 Test Item Value Reference Range Interpretation Comments Interpretation (test Negative results do code = 5652663) not preclude 2019-nCoV infection and should not be used as the sole basis for treatment or other patient management decisions. Negative results must be combined with clinical observations, patient history, and epidemiological information. COVID-19 qualitative Not-Detected Not-Detected PCR result (test code = 97410-2) COVID-19 qualitative See link below for C ase Number: PCR (test code = PDF Lab Report [id number]) [facility] MethodistUrine [id number] 23:23:37 Test Item Value Reference Range Interpretation Comments Urine culture (test SEE COMMENT Bacteriu graciela screen code = 7644676) negative. [facility] MethodistLactic acid level, SEPSIS - Now and repeat 2x every 3 hours 2020-03-20 20:24:19 Test Item Value Reference Range Interpretation Comments Lactic acid (test code = 21216-4) 1.3 mmol/L 0.5-2.2 [place] MethodistComprehensive metabolic [id number] 15:33:50 Test Item Value Reference Range Interpretation Comments Sodium (test code = 140 135- 148 mEq/L 2951-2) Potassium (test code = 4.6 3.5- 5.0 mEq/L 2823-3) Chloride (test code = 102 98- 112 mEq/L 2075-0) CO2 (test code = 2027-9) 24 24- 31 mEq/L Anion gap (test code = 14@ANIO 7- 15 mEq/L 24815-1) BUN (test code = 3094-0) 14 mg/dL 6-20 Creatinine (test code = 0.88 mg/dL 0.7-1.2 2160-0) Glucose (test code = 100 mg/dL 65-99 H 2345-7) Calcium (test code = 9.6 mg/dL 8.3-10.2 11478-1) Protein (test code = 7.2 g/dL 6.3-8.3 -[place] n 2885-2) 4.6-7.0 g/dL1 week 4.4-7 .6 g/dL7 months-1y ear 5.1-7 .3 g/dL1-2 years 5.6-7 .5 g/dL>3 years 6.0-8 .0 g/mR59-368 6.3-8 .3 g/dL Albumin (test code = 3.2 g/dL 3.5-5 L 1751-7) A/G ratio (test code = 0.8 0.7-3.8 1759-0) Alkaline phosphatase 176 U/L 40-129 H (test code = 6768-6) AST (test code = 1920-8) 29 U/L 10-50 ALT (test code = 1742-6) 54 U/L 5-50 H Total bilirubin (test 0.8 mg/dL 0-1.2 code = 1975-2) Lab Interpretation (test Abnormal code = 09829-1) [facility] MethodistAerobic [id number] 14:10:18 Test Item Value Reference Range Interpretation Comments Aerobic culture No growth Specimen isolate (test after 3 days. InformationSp ecimen code = 498) Source: FluidSp ecimen Site: Right Pel aniya Lymphocele [place] MethodistAnaerobic [id number] 08:03:36 Test Item Value Reference Range Interpretation Comments Anaerobic No anaerobic Specimen culture isolate organisms InformationS pecimen (test code = isolated. Source: FluidSp ecimen 552) Site: Right Pel aniya Lymphocele [place] MethodistUS Soft Tissue [id number] 16:22:00Hm Interface, Radiology Results 03/06/2020 4:25 PM CDTExamination: US SOFT TISSUE DRAIN, US SOFT TISSUE DRAINClinical history: "I89.8 Other specified noninfective disorders of lymphatic vessels and lymph nodes, LEFT lymphocele" Comparison: CT abdomen/pelvis 03/03/2020.Anesthesia: Lidocaine solution was injected into the involved tissues.Conscious sedation: After the risks and benefits of conscious sedation were discussed, midazolam and fentanyl were administered intravenously. Throughout the conscious sedation duration, the patient was continuously monitored by a registered nurse. The physician intraservice rfwo-hu-wcdb time with the patient was 40 minutes. Antibiotic prophylaxis:Antibiotic prophylaxis was not given due to the clean/low-risk nature of the procedure.Technique: The patient was prepared using sterile technique after signed, informed consent was obtained. Maximal sterile barrier technique was implemented. The left and right lower quadrants of the abdomen was imaged sonographically; the left and right lower quadrant fluid collections were identified. Under real-time sonographic guidance, an 18G Chiba needle was inserted percutaneously into the left lower quadrant fluid collection from an anterior approach. Seldinger technique was used to introduce a standardguidewire into the effusion. After the percutaneous tissues were dilated, a 10 Congolese drainage catheter was introduced and positioned with the catheter tip within the left lower quadrant fluid collec tion. Approximately 200cc of clear yellow fluid was aspirated through the catheter. The external portion of the catheter was sutured to the adjacent skin. The process was repeated for the right lower quadrant fluid collection, with aspiration of approximately 50cc of clear yellow fluid through the catheter. Estimated blood loss: Less than 1 cc. Complications: None. Specimens removed: As above.Attending Radiologist: Stephanie Zamora M.D.Resident: Lissy Bass M.D IMPRESSION: 10 Congolese drainage catheters were introduced into the left and right lower quadrant fluid collections using real-time sonographic guidance and without incident as described above. Approximately 200 cc of clear yellow fluid was aspirated from the left fluid collection and 50 cc of clear yellow fluid was aspirated from the right fluid collection. Samples were submitted for laboratory evaluation.[facility]- [id number] and approved by radiology orderly/fellow: Lissy Bass M.D.I, STEPHANIE AGUILAR MD, personally reviewed the images and resident's/fellow's findings and agree with the final report.[facility] Gram [id number] 15:49:40Gram stain isolateRare WBC'sNo organisms seen Comment: Specimen InformationSpecimen Source: FluidSpecimen Site: Right Pelvic Lymphocele [facility] MethodistCreatinine level, [facility] [id number] 13:34:54 Test Item Value Reference Range Interpretation Comments Fluid type RIGHT PELVIC (test code = LYMPHOCELE 26066-2) Creatinine, 1.2 mg/dL The reference fluid (test interval(s) and other code = method performa nce 06943-2) specifications have not been establishe d for this body fluid . The test results mu st be integrated into the clinical contex t for interpretation. This test has been m odified from the [facility]. The performance characteristics were determined by [facility] in a manner consiste nt with [facility]. This test has n ot been cleared or appr john by the U.S. Food a nd Drug Administration. Ty SousaFL Cystogram Minimun 3 [id number] 14:16:30Hm Interface, Radiology Results - 03/05/2020 2:19 PM CDTEXAMINATION: FL CYSTOGRAM MINIMUM3 VWCLINICAL HISTORY: C61 Malignant neoplasm of prostate, PROSTATE CANCERCOMPARISON: Prior cystogram 02/27/2020.TECHNIQUE: Cystogram was performed. Contrast was instilled into the bladder in a retrograde manner via Tran catheter. Fluoroscopy time: 4.8 minutes Spot Films: 15 Dose: 398.1 mGy FINDINGS:Bladder is normally distensible and normal in contour. No contrast extravasation was seen. No vesicoureteral reflux. No significant postvoid residual.IMPRESSION:No evidence of an anastomotic leak is seen on the present exam. The previously seen leak appears to resolve.[facility]-[id number] and approved by radiology orderly/fellow: Megan Powell, Rayna Erickson MD, personally reviewedthe images and resident's/fellow's findings and agree with the final report.Ty Julienurgical pathology request 2020-03-04 12:09:10 Test Item Value Reference Range Interpretation Comments Case number (test [id number] code = [id number]) Surgical pathology See link below for PDF report (test code = Lab Report 2255) Result status (test This is Supplemental code = [id number]) Report for [id number] Ty NguyenistMagnesium [id number] 06:57:52 Test Item Value Reference Range Interpretation Comments Magnesium (test code = 86391-5) 2.1 mg/dL 1.6-2.6 [facility] MethodistPhosphorus [id number] 06:57:50 Test Item Value Reference Range Interpretation Comments Phosphorus (test code = 2777-1) 2.4 mg/dL 2.4-4.5 Ty WendydenitaCT Abdomen Pelvis W Wo [id number] 12:20:14Hm Interface, Radiology Results - 02/23/2020 12:23 PM CDTEXAMINATION: CT ABDOMEN PELVIS W WO CONTRASTCLINICAL HISTORY: Abd distension, hx constipation r o bowel obstruction and post-op hematomaTECHNIQUE: Helical CT of the abdomen and pelvis was obtained pre- and post administration of iodinated contrast. Sagittal and coronal computerized reformatted images were also obtained. CT scans are performed using radiation dose reduction techniques. Technical factors are evaluated and adjustedto ensure appropriate moderation of exposure. Automated dose management technology is applied to adjust radiation exposure while achieving a diagnostic quality image.COMPARISON: None.IMPRESSION:Lower Ch est: Lung bases are clear. Abdomen:Liver: Normal in size and contour without discrete mass. Gallbladder/Biliary: Gallbladder is unremarkable. There is no biliary dilatation. Spleen: Normal in size.Pancreas: Unremarkable.Adrenal Glands: Unremarkable.Kidneys: Punctate nonobstructive left renal calculus. No hydronephrosis.Vascular: The abdominal aorta is normal in caliber.Nodes: No regional adenopathy.Bowel: The bowel is unobstructed. There is enteric contrast throughout the colon and rectum, without extravasation. There is pancolonic diverticulosis without acute diverticulitis. Normal appendix.Ascites/fluid collections: None.Pelvis:Lymphovascular: No pelvic adenopathy. Reproductive organs: Expected post surgical changes are seen in the prostatectomy bed. Bilateral small pelvic sidewall hematomas with small foci of lucency which may be related to surgical hemostatic material.Bladder: Urinary bladder is decompressed by a Tran catheter.Other: None.Musculoskeletal: There is extensive subcutaneous emphysema likely related to recent surgery. SUMMARY:1.No bowel obstruction.2.Expected postsurgicalchanges in the pelvis without large volume hematoma. [facility]-WPHYNXGHousst. mary[facility] hospital HkxclfjkyJvbkjzbute4629-33-08 05:12:06 Test Item Value Reference Range Interpretation Comments HCT (test code = 4544-3) 38.5 % 41-51 L Lab Interpretation (test code = Abnormal 27198-3) Crawford [id number] 05:12:06 Test Item Value Reference Range Interpretation Comments HGB (test code = 718-7) 12.7 g/dL 14-18 L Lab Interpretation (test code = Abnormal 32107-4) Ty [id number] 13:19:41Nhan Cisse MD 02/21/2020 4:10 PMAirwayPerformed by: Rachel Salvadorhorized by: Du Palacio MD Location: ORUrgency: ElectiveDifficult Airway: No Performed by: resident/SAMPLE DISTRIBUTOR/AAPreoxygenated with 100% O2: Yes Mask Ventilation: Easy maskFinal Airway Type: Endotracheal airwayFinal Endotracheal Airway: ETTCuffed: Yes Technique Used: Video laryngoscopyDevices/Methods Used in Placement: Intubating styletInsertion Site: OralBlade Type: MacintoshLaryngoscope Blade/Videolaryngoscope Blade Size: 3ETT Size (mm): 8.0Cuff at minimum occlusion pressure: Yes Measured from: LipsETT to Lips (cm): 23Placement Verified by: CO2 detection, direct visualizationand equal breath sounds Laryngoscopic view: Grade I - full view of glottisNumber of Attempts at Approach: 2Houston MethodistECG Pre/Post [id number] 21:10:08 Test Item Value Reference Range Interpretation Comments Ventricular rate (test 74 code = 253) Atrial rate (test code = 74 255) VT interval (test code = 146 266) QRSD interval (test code 100 = 260) QT interval (test code = 384 264) QTC interval (test code 426 = 265) P axis 1 (test code = 27 267) QRS axis 1 (test code = 2 268) T wave axis (test code = 35 270) EKG impression (test Normal sinus code = 273) rhythm-Normal ECG-No previous ECGs available-Electronica lly Signed By Daminá Rose MD ([id number]) on 02/18/2020 9:10:03 PM Ty SousaHIV Ag/Ab [id number] 13:46:12 Test Item Value Reference Range Interpretation Comments HIV Ag/Ab combination (test code Non-reactive Non-reactive = 5299) Ty MethodistType and [id number] 13:28:00 Test Item Value Reference Range Interpretation Comments ABO grouping (test code = 883-9) O Rh type (test code = 05386-1) POS Antibody screen (gel) (test code = NEG 890-4) Ty SousaUS Prostate [id number] 13:36:55Ultrasound/MRI guided Prostate Needle BiopsyDiagnosis Elevated PSA Previous Bx: suspicious for CAP Findings: Prostate echogenicity: HeterogenousCalcifications: Large multiple Measurements: Whole Gland AP Diamter: 3.5 cm. Trasverse: 4.3 cm. Length 4.4 cm. Total Volume 36 mL. Nodule none -- Ultrasound guided biopsies under local anesthesia: 12 Template Biopsies. 2 Additional Biopsies of MRI LOYD PI- RADS 4 Right midline anterior . : Comments:Fusion guided prostate needle BX was performed by and procedure was tolerated very well.Total 14 cores were taken under local anesthesia 2% lidocaine 5 cc on each side.[facility] Prostate Wwo [id number] 10:53:14Hm Interface, Radiology Results 10/24/2019 10:56 AM CDTEXAMINATION: MRI PROSTATE WWO CONT RASTCLINICAL HISTORY: 58 years Male R97.20 Elevated prostate specific antigen (PSA), elev psaCOMPARISON: None.TECHNIQUE: Using a pelvic phased array coil, multiplanar, multisequence MRI of the pelvis was performed with a prostate- specific protocol with and without contrast. Diffusion weighted images and dynamic contrast enhanced images were performed. The examination was performed using a 3T magnet. IMAGE QUALITY: The image quality is satisfactory.IMPRESSION:1. Size: The prostate gland measures 3.2 x 3.8 x 3.0 cm. Calculated prostatic volume (ellipsoid model) is 19.10 cc. 2. Central gland: In the anterior central gland towards the apex, there is a T2 low signal lesion measuring approximately 1.1 x 1.3 x 1.3 cm, with ill-defined borders. It is associated with hypervascularity as well as restricted diffusion.3. Peripheral zone: No significant lesion identified.4. Seminal vesicles: Normal.5. Ex tracapsular extension: There is mild bulging of the anterior capsule without clear extracapsular extension.6: Bladder: Normal.7. Lymph nodes: Nonspecific pelvic sidewall and inguinal nodes are seen, measuring less than 1 cm in short axis.8. Musculoskeletal: No focal marrow replacing abnormality.9. Other: No additional signaificant findings.PI-RADS score: 4 PI-RADS score: The presence of a significant prostate cancer is:PI-RADS 1: Very low (Highly unlikely)PI-RADS 2: Low (Unlikely)PI-RADS 3: Intermediate (Equivocal)PI-RADS 4: High (Likely)PI- RADS 5: Very High (Highly likely)(All PI-RADS 3, 4 and 5 lesions are marked in DynaCAD for possible fusion biopsy)[facility]-[id number] Caodaism
--- OUTSIDE RECORDS SUMMARY | 2020-08-16 08:51 | XMS REPORT | Summary of Care ---
:1960 Author Organization [facility] - [facility] Address [address] [place] [id number] Care Team Providers Name Role Phone Aakash Deng Sonny Primary Care Provider Reason for Visit Reason Comments LAB Exposure Encounter Details Date Type Department Care Team Description 08/05/2020 Laboratory Only [facility] Family JuanaFalguni ivory PA [address] [place] [address] [place] [address] Exposure to Medicine - [facility], [facility] Fam Pob I SARS-associated [address] [place] [address] coronaviru s ([address] Drive Dx) [place] [address] Allergies No Known Allergiesdocumented as of this encounter (statuses as of 08/05/2020) Medications Medication Sig Dispensed Refills Start Date End Date Status simvastatin (ZOCOR) 5 Take 5 mg by mouth 0 Active mg tablet at bedtime. LINZESS 145 mcg Take 1 capsule by 1 01/04/2016 Active capsule mouth daily. documented as of this encounter (statuses as of 08/05/2020) Active Problems Problem Noted Date Fluid collection at surgical site 02/19/2016 Multiple lipomas 10/13/2015 Obesity (BMI 35.0-39.9 without comorbidity) 10/13/2015 documented as of this encounter (statuses as of 08/05/2020) Social History Tobacco Use Types Packs/Day Years Used Date Never Smoker Smokeless Tobacco: Never Used Alcohol Use Drinks/Week oz/Week Comments No 0 Standard drinks or equivalent 0.0 Sex Assigned at Date Recorded Not on file COVID-19 Exposure Response Date Recorded In the last month, have you been in contact with No / Unsure 08/05/2020 9:43 AM BIOINFORMATICIAN someone who was confirmed or suspected to have Coronavirus / COVID-19? documented as of this encounter Last Filed Vital Signs Not on filedocumented in this encounter Nursing Notes Fely De La Rosa MA - 08/05/2020 9:40 AM CSTDakristin Mendiola Jr. is a 59 year old male here for COVID Screening with a Nasopharyngeal Swab All droplet and contact precautions taken with appropriate PPE worn while interacting with patient. ? Goggles ? N95 Mask ? Gloves ? Gown RR 14 Ox 98% Patient educated on plan of care for visit, swabbing technique, risks and benefits of test and length of time to receive results. Verbal consent obtained to perform test. CDC Fact Sheet for Patients nCoV Diagnostic Panel dated 10/13/2019 and Factsheet What to Do if Sick with COVID 19 09/23/19 provided. Bilate nares swabbed during COVID19 nasopharyngeal swab. Patient swabbed per appropriate nasopharyngeal technique, and patient tolerated well. Patient was discharged from the testing clinic in stable condition. FELY DE LA ROSA MA 08/05/2020 9:42 AM NFORMATICIAN documented in this encounter Plan of Treatment Name Type Priority Associated Diagnoses Order S chedule COVID-19 (MOLECULAR LAB Routine Exposure to Expected : 08/05/2020, TESTING SARS-associated Expires: 022 NUCLEIC ACID coronavirus AMPLIFICATION) Health Maintenance Due Date Last Done Comments HEPATITIS C (HCV) SCREEN 1960 PNEUMOCOCCAL 0-64 YEARS COMBINED SERIES (1 of 3 - 11/28/1967 PCV13) Depression Screening 1973 DTaP,Tdap,and Td Vaccines (1 - Tdap) 1980 COLON CANCER SCREENING ANNUAL FIT/FOBT 11/28/2011 COLON CANCER SCREENING FIT DNA EVERY 3 YEARS 11/28/2011 COLON CANCER SCREENING SIGMOIDOSCOPY EVERY 5 YEARS 11/28/2011 COLONOSCOPY 11/28/2011 Colorectal Cancer Screening 11/28/2011 Zoster Recombinant Vaccine (SHINGRIX) (1 of 2) 11/28/2011 INFLUENZA VACCINE (#1) 2020 documented as of this encounter Results Not on filedocumented in this encounter Visit Diagnoses Diagnosis Exposure to SARS-associated coronavirus - Primary documented in this encounter Additional Health Concerns Infection Onset Date Last Indicated Resolved Time COVID-19 Rule Out 08/05/2020 08/05/2020 documented as of this encounter
[2020-08-16 09:37] LABS: Absolute Lymphocytes (CBC) 1.6 K/uL (0.7-4.9); Basophils % 0.5 % (0-1.3); Hematocrit 49.4 % (39.6-49.0); Lymphocytes % 19.7 % (15.3-44.8); MPV 9.1 fL (7.6-11.3); RBC Red Blood Cell Count 5.72 M/uL (4.33-5.43)
[2020-08-16 09:51] LABS: Albumin 3.7 g/dL (3.4-5.0); Bilirubin Direct 0.2 mg/dL (0-0.2); Potassium 4.1 mmol/L (3.5-5.1); Protein, Total 7.3 g/dL (6.4-8.2)
--- NOTE | 2020-08-16 10:23 | RAD REPORT ---
EXAM DESCRIPTION: CT - Abdomen Pelvis W Contrast - 08/16/2020 9:59 am CLINICAL HISTORY: ABD PAIN, COVID positive 5 days earlier, history of prostatectomy 1 year earlier COMPARISON: No comparisons TECHNIQUE: Biphasic, helical CT imaging of the abdomen and pelvis was performed following 100 ml non -ionic IV contrast. No oral contrast given. All CT scans are performed using dose optimization technique as appropriate and may include automated exposure control or mA/KV adjustment according to patient size. FINDINGS: No suspicious findings in the lung bases. No COVID pneumonia findings in either lung base . The liver, spleen, and pancreas show no suspicious findings. Gallbladder and biliary tree are also wi thout suspicious finding. Symmetric renal function is seen with no hydronephrosis or suspicious renal mass. Incidental 10 mm la teral mid left renal cyst. No pyelonephritis or acute parenchymal process. No bladder abnormalities. No adrenal abnormalities. Prostatectomy surgical changes are evident. There is no acute finding along the pelvic floor. No dilated bowel loops or bowel wall thickening. No appendicitis findings. Sigmoid colon is tortuous and redundant extending to the anterior mid abdomen. No free air, free fluid or inflammatory strandin g. No mass or bulky lymphadenopathy. Patient has a fat only periumbilical hernia. Fat only right ing uinal hernia present. SI joint degenerative changes are present, mild in severity. Advanced facet joint degenerative change s present at L5-S1. Vertebral body degenerative changes are present. Partial compression fractures wi th vertebroplasty present in the L1 and L2 bodies. Slight wedging of the L3 body is present with a la rge Schmorl's node in the superior endplate. Advanced degenerative disc disease present L2-3. No melva tic changes to suspect bony metastatic disease. IMPRESSION: Contrast enhanced CT abdomen and pelvis showing no acute or emergent finding. Nonacute findings detailed in the body of the report.
[2020-08-16 10:36] LABS: SARS-COV-2 RT PCR NEGATIVE (NEGATIVE)
[2020-08-16] MEDS ORDERED: NA CHLORIDE 0.9% 1,000 ML ONE (10:43)
[2020-08-16] MEDS ORDERED: ONDANSETRON 4 MG/2 ML VIAL ONE (10:43)
[2020-08-16] MEDS ORDERED: MORPHINE 4 MG/ML SYR ONE (10:43)
--- NOTE | 2020-08-16 10:56 | EDPHYS ---
Physician Documentation [facility] Name: Christopher Mendiola III Age: 59 yrs Sex: Male : 1960 Arrival Date: 08/16/2020 Time: 08:48 Bed 4 Private MD: ED Physician Lexie Aponte HPI: 08/16 10:26 This 59 yrs old Male presents to ER via Ambulatory with complaints of pm1 Abdominal Pain. 10:26 The patient presents with abdominal pain in the left upper quadrant. pm1 10:26 Onset: The symptoms/episode began/occurred 2 week(s) ago. The symptoms do not radiate. pm1 Associated signs and symptoms: Pertinent positives: constipation, night sweats, loss in sense of taste and smell, Pertinent negatives: nausea, vomiting, and diarrhea, chest pain, shortness of breath. The symptoms are described as achy. Modifying factors: The symptoms are alleviated by nothing, the symptoms are aggravated by nothing. Severity of pain: in the emergency department the pain is unchanged. The patient has not experienced similar symptoms in the past. The patient has not recently seen a physician. Patient's with onset of the same symptoms at the same time. Historical: - Allergies: 10:18 No Known Allergies; ph - Home Meds: 10:18 Prozac Oral [Active]; testosterone buccal buccal [Active]; ph - PMHx: 10:18 cancer, prostate; Depression; ph - Immunization history:: Adult Immunizations unknown. - Social history:: Smoking status: Patient denies any tobacco usage or history of. ROS: 10:26 Neck: Negative for injury, pain, and swelling, Cardiovascular: Negative for chest pain, pm1 palpitations, and edema, Respiratory: Negative for shortness of breath, cough, wheezing, and pleuritic chest pain. 10:26 Back: Negative for injury and pain, : Negative for injury, bleeding, discharge, and swelling, MS/Extremity: Negative for injury and deformity, Skin: Negative for injury, rash, and discoloration. 10:26 Neuro: Negative for headache, weakness, numbness, tingling, and seizure. 10:26 Constitutional: Negative for fever, poor PO intake. 10:26 Abdomen/GI: Positive for abdominal pain, constipation, Negative for nausea, vomiting, and diarrhea. Exam: 10:26 Constitutional: This is a well developed, well nourished patient who is awake, alert, pm1 and in no acute distress. Head/Face: Normocephalic, atraumatic. Neck: Trachea midline, no thyromegaly or masses palpated, and no cervical lymphadenopathy. Supple, full range of motion without nuchal rigidity, or vertebral point tenderness. No Meningismus. Chest/axilla: Normal chest wall appearance and motion. Nontender with no deformity. No lesions are appreciated. Cardiovascular: Regular rate and rhythm with a normal S1 and S2. No gallops, murmurs, or rubs. Normal PMI, no JVD. No pulse deficits. Respiratory: Lungs have equal breath sounds bilaterally, clear to auscultation and percussion. No rales, rhonchi or wheezes noted. No increased work of breathing, no retractions or nasal flaring. 10:26 Back: No spinal tenderness. No costovertebral tenderness. Full range of motion. Skin: Warm, dry with normal turgor. Normal color with no rashes, no lesions, and no evidence of cellulitis. MS/ Extremity: Pulses equal, no cyanosis. Neurovascular intact. Full, normal range of motion. 10:26 Abdomen/GI: Inspection: obese Palpation: soft, in all quadrants, mild abdominal tenderness, in the left upper quadrant. 10:26 Neuro: Exam negative for acute changes, Orientation: is normal, Mentation: is normal, Motor: is normal, moves all fours. Vital Signs: 09:01 BP 147 / 109; Pulse 94; Resp 18; Temp 98.3(O); Pulse Ox 99% on R/A; Weight 102.06 kg; ph Height 5 ft. 7 in. (170.18 cm); Pain 6/10; 10:00 BP 144 / 58; Pulse 82; Resp 18; Pulse Ox 98% on R/A; ph 11:32 BP 136 / 89; Pulse 87; Resp 18; Temp 98.2; Pulse Ox 100% on R/A; ph 09:01 Body Mass Index 35.24 (102.06 kg, 170.18 cm) ph MDM: 09:09 Patient medically screened. pm1 10:54 Data reviewed: vital signs. pm1 10:54 Counseling: I had a detailed discussion with the patient and/or guardian regarding: the pm1 historical points, exam findings, and any diagnostic results supporting the discharge/admit diagnosis, lab results, radiology results, the need for outpatient follow up, to return to the emergency department if symptoms worsen or persist or if there are any questions or concerns that arise at home. 08/16 09:18 Order name: Basic Metabolic Panel; Complete Time: 09:53 pm1 08/16 09:18 Order name: CBC with Diff; Complete Time: 09:49 pm1 08/16 09:18 Order name: Hepatic Function; Complete Time: 09:53 pm1 08/16 09:18 Order name: Lipase; Complete Time: 09:53 pm1 08/16 09:18 Order name: IV Saline Lock; Complete Time: 09:42 pm1 08/16 09:18 Order name: CT Abd/Pelvis - IV Contrast Only; Complete Time: 10:25 pm1 08/16 09:51 Order name: CREATININE WHOLE BLOOD; Complete Time: 09:53 EDMS 08/16 10:36 Order name: COVID-19/FLU A+B; Complete Time: 10:54 EDMS 08/16 09:18 Order name: Labs collected and sent; Complete Time: 09:42 pm1 Administered Medications: 10:33 Drug: NS 0.9% 1000 ml Route: IV; Rate: 1000 ml; Site: right antecubital; ph 10:33 Drug: Zofran (Ondansetron) 4 mg Route: IVP; Site: right antecubital; ph 10:35 Drug: morphine 4 mg Route: IVP; Site: right antecubital; ph 11:31 Drug: Bentyl 20 mg Route: PO; ph Disposition: 17:09 Co-signature as Attending Physician, Lexie Aponte MD. ma2 Disposition: 08/16/20 10:55 Discharged to Home. Impression: Unspecified abdominal pain. - Condition is Stable. - Discharge Instructions: Abdominal Pain, Adult. - Prescriptions for Bentyl 20 mg Oral Tablet - take 1 tablet by ORAL route every 6 hours As needed; 20 tablet. - Medication Reconciliation Form, Thank You Letter, Antibiotic Education, Prescription Opioid Use form. - Follow up: Emergency Department; When: As needed; Reason: Worsening of condition. Follow up: Private Physician; When: 2 - 3 days; Reason: Recheck today's complaints, Continuance of care, Re-evaluation by your physician. - Problem is new. - Symptoms have improved. Signatures: Dispatcher [employer] EDDC Trinh Munroe, RN RN ph Shorty Thompson, HOST/HOSTESS GROUND HOST/HOSTESS GROUND pm1 Lexie Aponte MD MD ma2 Corrections: (The following items were deleted from the chart) 09:53 09:19 CORONAVIRUS+MR.LAB.BRZ ordered. EDDC EDMS 09:54 09:19 Influenza Screen (A \T\ B)+BA.LAB.BRZ ordered. EDDC EDMS 11:42 10:55 08/16/2020 10:55 Discharged to Home. Impression: Unspecified abdominal pain. ph Condition is Stable. Forms are Medication Reconciliation Form, Thank You Letter, Antibiotic Education, Prescription Opioid Use. Follow up: Emergency Department; When: As needed; Reason: Worsening of condition. Follow up: Private Physician; When: 2 - 3 days; Reason: Recheck today's complaints, Continuance of care, Re-evaluation by your physician. Problem is new. Symptoms have improved. pm1
--- NOTE | 2020-08-16 10:56 | ER ---
Nurse's Notes [facility] Name: Christopher Mendiola III Age: 59 yrs Sex: Male : 1960 Arrival Date: 08/16/2020 Time: 08:48 Bed 4 Private MD: Diagnosis: Unspecified abdominal pain Presentation: 08/16 09:01 Chief complaint: Patient states: LUQ pain, fatigue, night sweats, nasal congestion x 2 ph weeks, also reports loss of taste, COVID test 5 days ago was negative, denies fever. Coronavirus screen: Client denies travel out of the [place] in the last 14 days. fatigue, loss of taste or smell, The client reports previous COVID testing was negative. Ebola Screen: No symptoms or risks identified at this time. Initial Sepsis Screen: Does the patient meet any 2 criteria? No. Patient's initial sepsis screen is negative. Does the patient have a suspected source of infection? No. Patient's initial sepsis screen is negative. Risk Assessment: Do you want to hurt yourself or someone else? Patient reports no desire to harm self or others. Onset of symptoms was August 16, 2020. 09:01 Method Of Arrival: Ambulatory ph 09:01 Acuity: CLOVER 3 ph Historical: - Allergies: 10:18 No Known Allergies; ph - Home Meds: 10:18 Prozac Oral [Active]; testosterone buccal buccal [Active]; ph - PMHx: 10:18 cancer, prostate; Depression; ph - Immunization history:: Adult Immunizations unknown. - Social history:: Smoking status: Patient denies any tobacco usage or history of. Screenin:17 Abuse screen: Denies threats or abuse. Denies injuries from another. Nutritional ph screening: No deficits noted. Tuberculosis screening: No symptoms or risk factors identified. Fall Risk None identified. Assessment: 09:00 General: Appears in no apparent distress. comfortable, Behavior is calm, cooperative, ph appropriate for age. Pain: Complains of pain in left upper quadrant. Neuro: Level of Consciousness is awake, alert, obeys commands, Oriented to person, place, time, situation. Cardiovascular: Capillary refill < 3 seconds in bilateral fingers Patient's skin is warm and dry. Respiratory: Airway is compromised Respiratory effort is even, unlabored. GI: Abdomen is round non-distended, Reports upper abdominal pain, constipation, diarrhea. EENT: Reports nasal congestion. Derm: Skin is intact, is healthy with good turgor, Skin is pink, warm \T\ dry. Musculoskeletal: Circulation, motion, and sensation intact. Range of motion: intact in all extremities. 10:00 Reassessment: Patient appears in no apparent distress at this time. Patient and/or ph family updated on plan of care and expected duration. Pain level reassessed. Patient is alert, oriented x 3, equal unlabored respirations, skin warm/dry/pink. 11:00 Reassessment: Patient appears in no apparent distress at this time. Patient and/or ph family updated on plan of care and expected duration. Pain level reassessed. Patient is alert, oriented x 3, equal unlabored respirations, skin warm/dry/pink. Vital Signs: 09:01 BP 147 / 109; Pulse 94; Resp 18; Temp 98.3(O); Pulse Ox 99% on R/A; Weight 102.06 kg; ph Height 5 ft. 7 in. (170.18 cm); Pain 6/10; 10:00 BP 144 / 58; Pulse 82; Resp 18; Pulse Ox 98% on R/A; ph 11:32 BP 136 / 89; Pulse 87; Resp 18; Temp 98.2; Pulse Ox 100% on R/A; ph 09:01 Body Mass Index 35.24 (102.06 kg, 170.18 cm) ph ED Course: 08:48 Patient arrived in ED. ds1 09:01 Trinh Munroe, TOMASA is Primary Nurse. ph 09:04 Shorty Thompson NP is PHCP. pm1 09:04 Lexie Aponte MD is Attending Physician. pm1 09:10 Triage completed. ph 09:26 Initial lab(s) drawn, by ne, sent to lab. COVID swab sent to lab. Flu and/or RSV swab dh3 sent to lab. Inserted saline lock: 20 gauge in right antecubital area, using aseptic technique. Blood collected. 09:59 CT Abd/Pelvis - IV Contrast Only In Process Unspecified. EDMS 10:16 Arm band placed on Patient placed in an exam room, on a stretcher, on pulse oximetry. ph 10:18 Patient has correct armband on for positive identification. Bed in low position. Call ph light in reach. Side rails up X 1. air sampling and monitoring on. Pulse ox on. NIBP on. 11:38 No provider procedures requiring assistance completed. IV discontinued, intact, ph bleeding controlled, No redness/swelling at site. Pressure dressing applied. Administered Medications: 10:33 Drug: NS 0.9% 1000 ml Route: IV; Rate: 1000 ml; Site: right antecubital; ph 10:33 Drug: Zofran (Ondansetron) 4 mg Route: IVP; Site: right antecubital; ph 10:35 Drug: morphine 4 mg Route: IVP; Site: right antecubital; ph 11:31 Drug: Bentyl 20 mg Route: PO; ph Outcome: 10:55 Discharge ordered by . pm1 11:39 Discharged to home ambulatory. ph 11:39 Condition: good 11:39 Discharge instructions given to patient, Instructed on discharge instructions, follow up and referral plans. medication usage, Demonstrated understanding of instructions, follow-up care, medications, Prescriptions given X 1. 11:42 Patient left the ED. ph Signatures: Dispatcher [employer] [facility] Massiel Hawk ds1 Trinh Munroe RN RN ph Shorty Thompson, ANDREIA IT SECURITY MANAGER pm1 Lisbeth Rodriguez 3
[2020-08-16] MEDS ORDERED: DICYCLOMINE HCL 10 MG CAP ONE (11:36)
[2020-08-16 11:55] VITALS: BP 136/89; TEMP 98.2; O2SAT 100
== END 2020-08-16 11:42 | disposition home or self-care (01) ==
LOC: ER 08:46
DX: R10.12 Left upper quadrant pain (principal); Z20.822 Contact with and (suspected) exposure to COVID-19; F32.9 Major depressive disorder, single episode, unspecified; Z85.46 Personal history of malignant neoplasm of prostate
CPT/HCPCS: 85025; 80048; 36415; 82565; 80076; 83690; 0240U; 74177; Q9967; J7030; J2405; 96374; 96375; 99284

== ENCOUNTER 2020-12-23 08:01 | Day surgery (SDC) | payer OTHER ==
[2020-12-21 12:26] LABS: Absolute Lymphocytes (CBC) 1.4 K/uL (0.7-4.9); Basophils % 0.5 % (0-1.3); Hematocrit 47.2 % (39.6-49.0); Lymphocytes % 21.6 % (15.3-44.8); MPV 9.4 fL (7.6-11.3); RBC Red Blood Cell Count 5.37 M/uL (4.33-5.43)
[2020-12-21 12:34] LABS: BUN Blood Urea Nitrogen 12 mg/dL (7-18); Bicarbonate 32 mmol/L (21-32); Glucose Level 97 mg/dL (74-106); Potassium 4.5 mmol/L (3.5-5.1); Sodium Level 137 mmol/L (136-145)
--- NOTE | 2020-12-21 13:09 | RAD REPORT ---
EXAM DESCRIPTION: RAD - Chest Pa And Lat (2 Views) - 12/21/2020 1:03 pm CLINICAL HISTORY: preop Chest pain. COMPARISON: No comparisonsNo comparisons TECHNIQUE: PA and lateral views of the chest were obtained. FINDINGS: The lungs are hyperexpanded compatible with COPD. The heart is upper limit of normal in si ze. No fracture or aggressive bony process. IMPRESSION: COPD without acute process identified.
[2020-12-23] MEDS ORDERED: CEFAZOLIN/SWI 1gm 1 GM/10 ML SYR ONE (08:39)
[2020-12-23] MEDS ORDERED: Ringers Lactate 1,000 ML IV ONE ×2 (08:39→14:33)
[2020-12-23] MEDS ORDERED: propofoL 200 MG/20 ML VIAL IV ONE (10:20)
[2020-12-23] MEDS ORDERED: FENTANYL CITR 100 MCG/2 ML ONE (10:20)
[2020-12-23] MEDS ORDERED: MIDAZOLAM HCL 2 MG/2 ML INJ ONE (10:21)
[2020-12-23] MEDS ORDERED: ROCURONIUM 50 MG/5 ML VIAL IV ONE (10:21)
[2020-12-23] MEDS ORDERED: LIDOCAINE 1% MPF 5 ML VIAL ONE (10:21)
[2020-12-23] MEDS ORDERED: EPHEDRINE SULF 50 MG/ML VIAL ONE (10:59)
[2020-12-23] MEDS ORDERED: NS 0.9% VIAL 10 ML ONE (10:59)
--- NOTE | 2020-12-23 11:17 | P.BOP ---
Preoperative diagnosis: incarcerated incisional ventral hernia Postoperative diagnosis: same Primary procedure: Laparoscopic repair incarcerated incisional ventral hernia with mesh Wink Cutter Operator: Luz Elena Cole (Gilda) Estimated blood loss: <10cc Specimen: hernia sac Findings: incarcerated incisional ventral hernia Anesthesia: General Complications: None Implants: ventralex ST with echo Transferred to: Recovery Room Condition: Good
[2020-12-23] MEDS ORDERED: NEOSTIGMINE 1 MG/ML -5 ML ONE (11:25)
[2020-12-23] MEDS ORDERED: GLYCOPYRROLATE 0.2 MG/ML SYR ONE (11:25)
[2020-12-23] MEDS ORDERED: MORPHINE 10 MG/ML VIAL ONE (11:34)
[2020-12-23] MEDS: HYDROMORPHONE HCL 1 MG/ML INJ ONE ×4 (11:37→11:52)
[2020-12-23] MEDS: MEPERIDINE HCL 25 MG/ML SYR ONE ×2 (11:57→12:02)
[2020-12-23 12:39] VITALS: O2SAT 96
[2020-12-23] MEDS ORDERED: ONDANSETRON 4 MG/2 ML VIAL IV PRN (12:46)
[2020-12-23] MEDS ORDERED: SODIUM CHLORIDE 0.9% 10ML INJ IV PRN (12:46)
[2020-12-23] MEDS ORDERED: CODEINE 30MG/APAP 300MG TAB ONE (12:47)
[2020-12-23] MEDS: HYDROMORPHONE HCL 1 MG/ML INJ IV PRN ×3 (13:50→22:13)
[2020-12-23] MEDS ORDERED: HYDROMORPHONE HCL 1 MG/ML INJ ONE (14:03)
[2020-12-23 15:17] VITALS: BMI 36.8
--- NOTE | 2020-12-23 15:33 | OP ---
Date of Procedure: 12/23/2020 Surgeon: Armando Costa MD Die Attaching Machine Tender: VALERIA Salinas. Preoperative Diagnosis: Incarcerated incisional ventral hernia. Postoperative Diagnosis: Incarcerated incisional ventral hernia. Procedure: Laparoscopic repair of incarcerated incisional ventral hernia with mesh. Specimen: Hernia sac. Findings: Incarcerated incisional ventral hernia. Anesthesia: General plus local. Implant: A Ventralex ST mesh 11 cm with Echo Positioning System. Indication: This is the case of a male, who comes to us with above diagnosis. Fully explained the b enefits, alternatives, and risks of laparoscopic possible open repair of incarcerated incisional vent ral hernia repair with mesh with benefits, alternatives, and risks including, but not limited to infe ction, bleeding, damage to adjacent structures, anesthesia complication, recurrence, chronic pain, ch ronic numbness, AK, and even . He also understands this may not relieve any symptoms. He might need more than one surgical intervention. He signed a consent. He also signed a consent for mesh p lacement after fully explained the benefits, alternatives, and risks of mesh placement, pros and cons of it and he did consent for the use of mesh. Procedure In Detail: The patient was brought to the operating room, placed in supine position. Anes thesia was done without complication. Abdominal area was prepped and draped in usual sterile fashion . Local anesthesia was applied followed by sharp incision of the skin in the periumbilical incision. This hernia was in the upper ventral region just above the umbilical area where the patient has a p revious incision. Incision was carried down. The hernia was found. Fascial edges were clean. Some adhesions we have to remove coming through the hernia sac. We will repair this laparoscopically, bu t we were able to at least put a trocar through that opening and a Devin trocar and then obtained pn eumoperitoneum. This allowed me to find 3 more areas in the abdomen and we can put a 5 mm trocar, ch itzel the camera to a 5 mm trocar and have better visualization of the hernia sac. The hernia sac edg es were open and clearly adhesions were removed and then we proceeded to clean the fascial edges. We proceeded to place a Vicryl #1 inside the fascia multiple times. At that moment, I proceeded to rem ove the Devin trocar, put the air through another trocar, place a Ventralex ST with Echo Positioning System intraperitoneally, tied all the stitches except 1. We inflated the balloon and we noticed to be going over the area about 3-5 cm. With the balloon inflated, we proceeded then to secure the mes h in place using CapSure device. Once we have that balloon was deflated, we continued and fixated th e area to make sure no intestines going between. The mesh seems to be nicely apposed against the per itoneum. At that moment, we took a look at the area of the adhesions and no bleeding. We proceeded then to deflate the pneumoperitoneum under direct visualization. I then tied the last stitch in that area and closed the area with subcutaneous tissue and then the skin in a subcuticular fashion. The patient tolerated the procedure well. The patient was sent to recovery in stable condition. RAAD/COLLIN Voice ID: [id number] Report ID: [id number]
--- NOTE | 2020-12-23 15:33 | DS ---
Diagnosis: Incarcerated incisional ventral hernia. Procedure: Laparoscopic repair of incarcerated incisional ventral hernia with mesh. Disposition: Home. Activity: As tolerated. No heavy lifting. Plan: Follow up in my office in 1 week. Call for appointment at [phone]. Keep area dry for 48 mono rs, then may shower. RAAD/COLLIN Voice ID: [id number] Report ID: [id number]
[2020-12-23] MEDS: NA CHLORIDE 0.9% 1,000 ML IV SCH ×2 (15:47→23:00)
[2020-12-23] MEDS: CIPROFLOXACIN HCL 500 MG TAB PO SCH (19:32)
[2020-12-23] MEDS: HYDROCODONE/APAP 7.5/325 MG TAB PO PRN (20:43)
[2020-12-24] MEDS: NA CHLORIDE 0.9% 1,000 ML IV SCH (01:01)
[2020-12-24] MEDS: HYDROMORPHONE HCL 1 MG/ML INJ IV PRN ×2 (01:01→03:51)
[2020-12-24 05:47] LABS: Absolute Lymphocytes (CBC) 1.5 K/uL (0.7-4.9); Basophils % 0.5 % (0-1.3); Hematocrit 41.7 % (39.6-49.0); Lymphocytes % 15.5 % (15.3-44.8); MPV 9.6 fL (7.6-11.3); RBC Red Blood Cell Count 4.73 M/uL (4.33-5.43)
[2020-12-24 06:03] LABS: BUN Blood Urea Nitrogen 10 mg/dL (7-18); Bicarbonate 28 mmol/L (21-32); Glucose Level 88 mg/dL (74-106); Sodium Level 139 mmol/L (136-145)
[2020-12-24 06:27] LABS: Potassium 4.3 mmol/L (3.5-5.1)
[2020-12-24] MEDS: HYDROCODONE/APAP 7.5/325 MG TAB PO PRN ×2 (06:52→10:45)
[2020-12-24 08:59] VITALS: TEMP 98.1
[2020-12-24] MEDS ORDERED: PANTOPRAZOLE 40 MG INJ IVP SCH (09:00)
[2020-12-24] MEDS: CIPROFLOXACIN HCL 500 MG TAB PO SCH (09:39)
[2020-12-24 12:14] VITALS: BP 127/60
== END 2020-12-24 14:10 | disposition home or self-care (01) ==
LOC: OR 08:01 → 4TH 13:06 → OR 12-24 14:10
PROVIDERS: ATTEND Surgery
PROC: 0WUF4JZ Supplement Abdominal Wall with Synthetic Substitute, Percutaneous Endoscopic Approach (ICD-10-PCS; principal; 2020-12-23 09:45)
DX: K43.6 Other and unspecified ventral hernia with obstruction, without gangrene (principal); Z20.822 Contact with and (suspected) exposure to COVID-19
CPT/HCPCS: 85025; 80048; 36415; 88302; 71046; 94010; 49655; U0003; J2704; J2250; J3010; J2175; J1170 ×6; J2710; J0690; J7120 ×2; J7030; C1781; C9113